=== PATIENT | male | born 1940 | race Caucasian/White ===

== ENCOUNTER 2019-10-04 10:02 | Inpatient (IN) | payer MEDICARE ==
[2019-10-04] MEDS ORDERED: NITROGLYCERIN OINT 1 INCH/GM PACKET TOPICAL STA (10:12)
[2019-10-04] MEDS ORDERED: ASPIRIN 81 MG PO STA (10:12)
[2019-10-04 10:33] LABS: Basophils # (A) 0.1 k/uL (0-0.2); Basophils % (A) 1 %; Eosinophils # (A) 0.1 k/uL (0-0.7); Eosinophils % (A) 0 %; HCT 44.8 % (39.0-53.0); HGB 14.7 gm/dL (13.0-17.5); Lymphocytes % (A) 16 %; MCH 30.9 pg (25.0-35.0); MCHC 32.8 g/dL (31.0-37.0); MCV 94.2 fL (80.0-100.0); Mean Platelet Volume 9.1; Monocytes # (A) 0.7 k/uL (0-1.0); Monocytes % (A) 5 %; Neutrophils # (A) 9.4 k/uL (1.3-7.7); Neutrophils % (A) 75 %; Platelet Count 253 k/uL (150-450); RBC 4.76 m/uL (4.30-5.90); WBC 12.4 k/uL (3.8-10.6)
[2019-10-04 10:42] LABS: Calcium 9.3 mg/dL (8.4-10.2); Total Bilirubin 1.1 mg/dL (0.2-1.3); Total Protein 6.8 g/dL (6.3-8.2)
[2019-10-04 10:43] LABS: Magnesium 2.1 mg/dL (1.6-2.3); Potassium 3.7 mmol/L (3.5-5.1)
[2019-10-04 10:44] LABS: Partial Thromboplastin Time 26.3 sec (22.0-30.0)
--- NOTE | 2019-10-04 10:47 | ED ---
General Adult HPI - General Chief complaint: Chest Pain Stated complaint: chest pain Time Seen by Provider: 10/04/19 10:10 Source: patient, RN notes reviewed, old records reviewed Mode of arrival: wheelchair Limitations: no limitations - History of Present Illness Initial comments: This is a 78-year-old male who presents emergency Department complaining of chest pain. Patient states it started last night about 1:00 in the morning. Patient states consistent with the pain he had when he has previous heart attack. Patient states he does have stents already placed. He also has high blood pressure. Patient states the pain did not radiate anywhere but it didn't make him short of breath. Patient states he took nitroglycerin every time he did it help the pain but the pain eventually returned. Patient denies any fever chills or cough per patient denies headache patient denies numbness weakness. Patient denies lightheadedness or dizziness. - Related Data Allergies Allergy/AdvReac Type Severity Reaction Status Date / Time No Known Allergies Allergy Verified 10/04/19 10:17 Review of Systems ROS Statement: Those systems with pertinent positive or pertinent negative responses have been documented in the HPI. ROS Other: All systems not noted in ROS Statement are negative. Past Medical History Past Medical History: Coronary Artery Disease (CAD), Hyperlipidemia, Hypertension History of Any Multi-Drug Resistant Organisms: None Reported Past Surgical History: Heart Catheterization With Stent Past Psychological History: Anxiety Smoking Status: Never smoker Past Alcohol Use History: None Reported Past Drug Use History: None Reported General Exam - General Exam Comments Initial Comments: GENERAL: Patient is well-developed and well-nourished. Patient is nontoxic and well- hydrated and is in mild distress. ENT: Neck is soft and supple. No significant lymphadenopathy is noted. Oropharynx is clear. Moist mucous membranes. Neck has full range of motion without eliciting any pain. EYES: The sclera were anicteric and conjunctiva were pink and moist. Extraocular movements were intact and pupils were equal round and reactive to light. Eyelids were unremarkable. PULMONARY: Unlabored respirations. Good breath sounds bilaterally. No audible rales rhonchi or wheezing was noted. CARDIOVASCULAR: There is a regular rate and rhythm without any murmurs gallops or rubs. ABDOMEN: Soft and nontender with normal bowel sounds. SKIN: Skin is clear with no lesions or rashes and otherwise unremarkable. NEUROLOGIC: Patient is alert and oriented x3. Cranial nerves II through XII are grossly intact. Motor and sensory are also intact. Normal speech, volume and content. Symmetrical smile. MUSCULOSKELETAL: Normal extremities with adequate strength and full range of motion. LYMPHATICS: No significant lymphadenopathy is noted PSYCHIATRIC: Normal psychiatric evaluation. Limitations: no limitations Course Vital Signs 10/04/19 10:08 Temperature 98.7 F Pulse Rate 79 Respiratory 18 Rate Blood Pressure 148/86 O2 Sat by Pulse 98 Oximetry Medical Decision Making - Medical Decision Making EKG shows normal sinus rhythm at 80 bpm OK interval 286 QRS is 98 QT interval 348 QTC is 41 per patient's EKG shows no ST segment elevation but there is some depression in the inferior leads Chest x-ray shows no acute abnormality. I spoke with Dr. Hernandez he wanted the patient started nitroglycerin drip. I asked him the EKG. He is aware the troponin is elevated and the patient continues to have chest pain. I spoke with Dr. Ramirez he agreed to admit the patient admitted the patient remaining orders I continued nitroglycerin and aspirin - Lab Data Result diagrams: 10/04/19 10:25 10/04/19 10:25 Lab Results 10/04/19 10/04/19 10/04/19 Range/Units 10:25 10:25 10:25 WBC 12.4 H (3.8-10.6) k/uL RBC 4.76 (4.30-5.90) m/uL Hgb 14.7 (13.0-17.5) gm/dL Hct 44.8 (39.0-53.0) % MCV 94.2 (80.0-100.0) fL MCH 30.9 (25.0-35.0) pg MCHC 32.8 (31.0-37.0) g/dL RDW 13.0 (11.5-15.5) % Plt Count 253 (150-450) k/uL Neutrophils % 75 % Lymphocytes % 16 % Monocytes % 5 % Eosinophils % 0 % Basophils % 1 % Neutrophils # 9.4 H (1.3-7.7) k/uL Lymphocytes # 2.0 (1.0-4.8) k/uL Monocytes # 0.7 (0-1.0) k/uL Eosinophils # 0.1 (0-0.7) k/uL Basophils # 0.1 (0-0.2) k/uL PT 10.0 (9.0-12.0) sec INR 1.0 (<1.2) APTT 26.3 (22.0-30.0) sec Sodium 137 (137-145) mmol/L Potassium 3.7 (3.5-5.1) mmol/L Chloride 102 (98-107) mmol/L Carbon Dioxide 29 (22-30) mmol/L Anion Gap 6 mmol/L BUN 25 H (9-20) mg/dL Creatinine 1.33 H (0.66-1.25) mg/dL Est GFR (CKD-EPI)AfAm 59 (>60 ml/min/1.73 sqM) Est GFR (CKD-EPI)NonAf 51 (>60 ml/min/1.73 sqM) Glucose 119 H (74-99) mg/dL Calcium 9.3 (8.4-10.2) mg/dL Magnesium 2.1 (1.6-2.3) mg/dL Total Bilirubin 1.1 (0.2-1.3) mg/dL AST 30 (17-59) U/L ALT 15 (4-49) U/L Alkaline Phosphatase 51 (38-126) U/L Troponin I (0.000-0.034) ng/mL Total Protein 6.8 (6.3-8.2) g/dL Albumin 4.0 (3.5-5.0) g/dL 10/04/19 Range/Units 10:25 WBC (3.8-10.6) k/uL RBC (4.30-5.90) m/uL Hgb (13.0-17.5) gm/dL Hct (39.0-53.0) % MCV (80.0-100.0) fL MCH (25.0-35.0) pg MCHC (31.0-37.0) g/dL RDW (11.5-15.5) % Plt Count (150-450) k/uL Neutrophils % % Lymphocytes % % Monocytes % % Eosinophils % % Basophils % % Neutrophils # (1.3-7.7) k/uL Lymphocytes # (1.0-4.8) k/uL Monocytes # (0-1.0) k/uL Eosinophils # (0-0.7) k/uL Basophils # (0-0.2) k/uL PT (9.0-12.0) sec INR (<1.2) APTT (22.0-30.0) sec Sodium (137-145) mmol/L Potassium (3.5-5.1) mmol/L Chloride (98-107) mmol/L Carbon Dioxide (22-30) mmol/L Anion Gap mmol/L BUN (9-20) mg/dL Creatinine (0.66-1.25) mg/dL Est GFR (CKD-EPI)AfAm (>60 ml/min/1.73 sqM) Est GFR (CKD-EPI)NonAf (>60 ml/min/1.73 sqM) Glucose (74-99) mg/dL Calcium (8.4-10.2) mg/dL Magnesium (1.6-2.3) mg/dL Total Bilirubin (0.2-1.3) mg/dL AST (17-59) U/L ALT (4-49) U/L Alkaline Phosphatase (38-126) U/L Troponin I 1.030 H* (0.000-0.034) ng/mL Total Protein (6.3-8.2) g/dL Albumin (3.5-5.0) g/dL Critical Care Time Critical Care Time: Yes Total Critical Care Time: 35 Disposition Clinical Impression: Acute non-ST elevation myocardial infarction (NSTEMI) Disposition: ADMITTED IP TO THIS HOSP Referrals: Abdiel Garza MD [Primary Care Provider] - 1-2 days Time of Disposition: 11:35
--- NOTE | 2019-10-04 11:01 | XR ---
EXAMINATION TYPE: XR chest 2V DATE OF EXAM: 10/04/2019 COMPARISON: None INDICATION: Chest pain TECHNIQUE: Frontal and lateral views of the chest are obtained. FINDINGS: The heart size is normal. The pulmonary vasculature is normal. The lungs are clear. There is eventration of the posterior right diaphragm. IMPRESSION: 1. No acute pulmonary process.
[2019-10-04] MEDS ORDERED: LORazepam 2 MG/ML INJ IV STA (11:19)
[2019-10-04] MEDS ORDERED: NITROGLYCERIN SL TABS 0.4 MG TAB SUBLINGUAL PRN (11:36)
[2019-10-04] MEDS: NITROGLYCERIN-D5W PMX 50 MG in DEXTROSE/WATER 1 250ML.BAG IV ONE ×2 (12:12→17:37)
--- NOTE | 2019-10-04 12:37 | P.CRDCN ---
History of Present Illness Consult date: 10/04/19 History of present illness: This is a 78-year-old gentleman with history of ischemic heart disease with possible previous myocardial infarction. He used to live in [place] and had previous stent placement. He claimed that he had 3 stents. He also claimed that he had a clot and was maintained on anticoagulation. His EKG shows possible old anteroseptal AR. I'm presuming that most probably had clotted apex related to AR and possible some aneurysm formation. He moved to this area and has been seen by Dr. Carmen. He did have a recent stress test and echocardiogram and apparently was told that the tests were okay. Starting last night around 11:00 patient has been having chest discomfort similar to what he had before. Nitroglycerin will relieve the pain but pain will come back. In view of ongoing pains patient came to the emergency room. His EKG shows mild ST depression inferior leads and evidence of old anteroseptal AR. He still having some discomfort described as a 3 on a scale of 1-10. His troponin is positive. In view of that patient is advised to have a cardiac catheterization for definitive diagnosis. Patient is on Eliquis. Patient is being initiated on IV nitroglycerin and beta blockers along with aspirin. We'll proceed with Cardec catheterization as soon as possible. We'll also get an echocardiogram Review of Systems As per the chart Past Medical History Past Medical History: Coronary Artery Disease (CAD), Hyperlipidemia, Hypertension History of Any Multi-Drug Resistant Organisms: None Reported Past Surgical History: Heart Catheterization With Stent Past Psychological History: Anxiety Smoking Status: Never smoker Past Alcohol Use History: None Reported Past Drug Use History: None Reported Medications and Allergies Home Medications Medication Instructions Recorded Confirmed Type Apixaban [Eliquis] 5 mg PO BID 10/04/19 10/04/19 History Aspirin [Adult Low Dose Aspirin EC] 81 mg PO DAILY 10/04/19 10/04/19 History Carvedilol [Coreg] 6.25 mg PO BID 10/04/19 10/04/19 History Cholecalciferol [Vitamin D3 (25 1,000 unit PO DAILY 10/04/19 10/04/19 History Mcg = 1000 Iu)] Cyanocobalamin [Vitamin B-12] 500 mcg PO DAILY 10/04/19 10/04/19 History Hydrochlorothiazide 25 mg PO DAILY 10/04/19 10/04/19 History LORazepam [Ativan] 1 mg PO BID 10/04/19 10/04/19 History Nitroglycerin 0.4MG/Hr Patch 1 patch TRANSDERM DAILY 10/04/19 10/04/19 History [Nitro-Dur 0.4MG/Hr Patch] Potassium Gluconate 99 mg PO DAILY 10/04/19 10/04/19 History Simvastatin 40 mg PO DAILY 10/04/19 10/04/19 History amLODIPine [Norvasc] 2.5 mg PO DAILY 10/04/19 10/04/19 History Allergies Allergy/AdvReac Type Severity Reaction Status Date / Time No Known Allergies Allergy Verified 10/04/19 12:22 Physical Exam Vitals: Vital Signs Temp Pulse Resp BP Pulse Ox 10/04/19 12:30 74 20 155/101 99 10/04/19 12:00 75 20 141/90 97 10/04/19 11:30 75 12 135/79 97 10/04/19 11:00 68 18 140/85 97 10/04/19 10:30 79 7 L 148/86 99 10/04/19 10:08 98.7 F 79 18 148/86 98 Intake and Output 10/03/19 10/04/19 10/04/19 22:59 06:59 14:59 Other: Weight 87.09 kg GENERAL EXAM: Patient is alert and oriented and doesn't appear to be in any acute distress HEENT: Normocephalic. Normal reaction of pupils, equal size, normal range of extraocular motion. No erythema or exudates in the throat. NECK: No masses, no nuchal rigidity. CHEST: No chest wall deformity. LUNGS: Equal air entry with no crackles or wheeze. HEART: S1 and S2 normal with no audible mumurs or gallops. Regular rhythm, femorals equal on both sides.. ABDOMEN: No hepatosplenomegaly, normal bowel sounds, no guarding or rigidity. SKIN: No rashes CENTRAL NERVOUS SYSTEM: No focal deficits. EXTREMITIES: No cyanosis, clubbing or edema. Results 10/04/19 10:25 10/04/19 10:25 Cardiac Enzymes 10/04/19 10/04/19 Range/Units 10:25 10:25 AST 30 (17-59) U/L Troponin I 1.030 H* (0.000-0.034) ng/mL Coagulation 07/04/20 Range/Units 10:25 PT 10.0 (9.0-12.0) sec APTT 26.3 (22.0-30.0) sec CBC 10/04/19 Range/Units 10:25 WBC 12.4 H (3.8-10.6) k/uL RBC 4.76 (4.30-5.90) m/uL Hgb 14.7 (13.0-17.5) gm/dL Hct 44.8 (39.0-53.0) % Plt Count 253 (150-450) k/uL Comprehensive Metabolic Panel 10/04/19 Range/Units 10:25 Sodium 137 (137-145) mmol/L Potassium 3.7 (3.5-5.1) mmol/L Chloride 102 (98-107) mmol/L Carbon Dioxide 29 (22-30) mmol/L BUN 25 H (9-20) mg/dL Creatinine 1.33 H (0.66-1.25) mg/dL Glucose 119 H (74-99) mg/dL Calcium 9.3 (8.4-10.2) mg/dL AST 30 (17-59) U/L ALT 15 (4-49) U/L Alkaline Phosphatase 51 (38-126) U/L Total Protein 6.8 (6.3-8.2) g/dL Albumin 4.0 (3.5-5.0) g/dL Current Medications Generic Name Dose Route Start Last Admin Trade Name Freq PRN Reason Stop Dose Admin Aspirin 325 mg 10/05/19 09:00 Aspirin PO DAILY SHIRA Nitroglycerin/Dextrose 50 mg/ 250 mls @ 1.5 mls/hr 10/04/19 11:31 10/04/19 12:12 IV Solution IV 10/05/19 11:30 5 mcg/min .Q24H ONE 1.5 mls/hr Administration Protocol 5 MCG/MIN Nitroglycerin 0.4 mg 10/04/19 11:36 Nitrostat SUBLINGUAL Q5M PRN Chest Pain Intake and Output 10/03/19 10/04/19 10/04/19 22:59 06:59 14:59 Other: Weight 87.09 kg Patient Weight 10/05/19 06:59 Weight 87.09 kg 10/04/19 10:25 10/04/19 10:25 EKG Interpretations (text) Sinus rhythm with evidence of possible old anteroseptal AR with mild ST-T changes in inferior leads Assessment and Plan (1) Q waves suggestive of previous myocardial infarction Current Visit: Yes Status: Acute Code(s): R94.31 - ABNORMAL ELECTROCARDIO GRAM [ECG] [EKG] SNOMED Code(s): 166600257 (2) Acute non-ST elevation myocardial infarction (NSTEMI) Current Visit: Yes Status: Acute Code(s): I21.4 - NON-ST ELEVATION (NSTEMI) MYOCARDIAL INFARCTION SNOMED Code(s): 213154009 (3) Chronic renal failure Current Visit: Yes Status: Acute Code(s): N18.9 - CHRONIC KIDNEY DISEASE, UNSPECIFIED SNOMED Code(s): 16949626 Plan: We will proceed with a cardiac catheterization for definitive diagnosis. Meanwhile we'll continue with aspirin, beta cortney and IV nitroglycerin. Further recommendations depend upon clinical course. We'll also get an echoca rdiogram
[2019-10-04] MEDS ORDERED: MAGNESIUM SULFATE-D5W PMX 1 GM in DEXTROSE/WATER 1 100ML.BAG IVPB STA (13:32)
[2019-10-04] MEDS ORDERED: DEXTROSE 5% IN WATER 100 ML with AMIODARONE 150 MG IV ONE ×2 (13:33→13:39)
--- NOTE | 2019-10-04 13:34 | P.PN ---
Progress Note - Text Progress Note Date: 10/04/19 KERMIT TIRADO note: KERMIT TIRADO was called at the [facility] around 1:25 PM. Apparently patient had a syncopal episode and went into ventricular fibrillation. High-quality chest compressions were started. He was defibrillated at 200 J. He achieved return of spontaneous circulation. There was some concerns for seizure like activity. Dr. Hernandez was made aware of the events that took place in the [facility]. Dr. Hernandez arrived shortly after. These series of events took approximately 5-10 minutes.
[2019-10-04] MEDS ORDERED: AMIODARONE 50 MG/ML 3 ML VIAL IV ONE (13:39)
[2019-10-04] MEDS ORDERED: SODIUM CHLORIDE 0.9% 1,000 ML IV ONE (13:39)
[2019-10-04] MEDS ORDERED: LIDOCAINE 1% INJ 10MG/ML (20 ML MDV) SQ ONE (13:39)
[2019-10-04] MEDS: HEPARIN SODIUM 1,000 UN/ML (10ML VL) IV ONE ×2 (13:40→14:05)
[2019-10-04] MEDS ORDERED: VERAPAMIL SYRINGE (5 MG/10 ML) INTRAARTER ONE (13:40)
[2019-10-04] MEDS ORDERED: AMIODARONE 360 MG in DEXTROSE 5% IN WATER 200 ML IV ONE ×4 (13:45→14:15)
[2019-10-04] MEDS ORDERED: HEPARIN SODIUM 1,000 UN/ML (10ML VL) ONE (13:45)
--- NOTE | 2019-10-04 14:14 | P.CARDCATH ---
Date of Procedure: 10/04/19 Preoperative Diagnosis: Non-ST elevation LA, cardiac arrest and ventricular fibrillation Postoperative Diagnosis: Near total occlusion of the OM branch sluggish flow Procedure(s) Performed: Left heart cath without left ventriculography Description of Procedure: HISTORY: This is a 78-year-old gentleman with history of previous anterior wall myocardial infarction with multiple stent placement came to the emergency room with complaints of chest pain off and on his level o'clock last night. His first troponin was about more than 1. His EKG showed sinus rhythm with evidence of old anterolateral wall LA some T-wave inversion in the inferior leads. Patient is still having intermittent chest tightness described as a 3 and a scale of10. Doesn't appear to be in acute distress. However because of ongoing chest discomfort, Patient is advised to have a cardiac catheterization. As patient was being put on the table in the Lab, patient had a syncope with ventricular fibrillation. Patient was shocked and had brief CPR and retained pulse. Patient was little confused but was talking and moving. We decided to proceed with cardiac cath for definitive diagnosis and further intervention. The situation was discussed with family member, that his nephew, regarding the events. Prognosis is guarded. His mental status is fluctuating CONSENT:I have discussed the risks, benefits and alternative therapies for the above-mentioned procedure and for both sedation/analgesia as well as necessary blood product administration, if indicated, as they pertain to this patient. The patient has indicated understanding and acceptance of the risks and procedures discussed. PROCEDURE: Patient was brought to the lab in a fasting state. Patient was given some IV sedation. The right wrist is infiltrated with lidocaine and right radial artery was entered using Seldinger technique. A 6-[place] Citizen catheter was left in place and selective coronary arteriography was performed. Patient tolerated the procedure well. Patient went on to have stent placement to the OM branch which is previously stented. No immediate complications were noted and patient was transferred to [facility] in a stable condition Conscious Sedation: Versed 0mg Fentanyl 0 g Duration 15minutes HEMODYNAMICS: Aortic pressure is 110/70. The left ventricular end-diastolic pressure is not measured SELECTIVE CORONARY ARTERIOGRAPHY: LEFT MAIN: Large and free of any occlusive disease THE LEFT ANTERIOR DESCENDING CORONARY ARTERY:. Good caliber vessel with patent stent in the proximal to midportion THE LEFT CIRCUMFLEX AND IS CORONARY ARTERY:. Good caliber vessel with subtotal occlusion of the OM branch with faint antegrade flow. This vessel was previously stented THE RIGHT CORONARY ARTERY: Good caliber vessel with mild disease without any critical lesions. Dominant in distribution LEFT VENTRICULOGRAPHY:, Not performed FINAL IMPRESSION: Subtotal occlusion of the OM branch which was previously stented. The stent in the LAD is patent. The right coronary artery is free of significant focal lesion PLAN:. Stent placement of the OM branch being done by Dr. PADMAJA Loera PROGNOSIS:. gaurded
[2019-10-04] MEDS ORDERED: MIDAZOLAM 2 MG/2 ML VIAL IV ONE (14:27)
[2019-10-04] MEDS ORDERED: HEPARIN SODIUM 1,000 UN/ML (10ML VL) IV ONE (14:44)
[2019-10-04] MEDS ORDERED: IOPAMIDOL-370 100ML BTL INJ ONE (14:45)
[2019-10-04] MEDS ORDERED: CLOPIDOGREL 75 MG TAB NG-TUBE ONE (14:46)
[2019-10-04] MEDS ORDERED: CLOPIDOGREL 75 MG TAB ONE (14:53)
[2019-10-04] MEDS: SODIUM CHLORIDE 0.9% 1,000 ML IV SCH (15:00)
[2019-10-04] MEDS ORDERED: IPRATROPIUM-ALBUTEROL 3 ML NEB INHALATION PRN (15:03)
[2019-10-04] MEDS ORDERED: Potassium Replacement Protocol 1 EACH MISC MISCELLANE PRN (15:41)
--- NOTE | 2019-10-04 15:55 | CT ---
CT scan of the brain. History altered mental status. Comparison none. TECHNIQUE: Multiple axial sections were obtained of the brain without contrast. There is diffuse cerebral cortical atrophy. There is no mass effect nor midline shift. There is no si gn of intracranial hemorrhage. There is some mucosal thickening in the ethmoid air cells. Calvarium i s intact. IMPRESSION: Cerebral atrophy. No acute intracranial abnormality.
[2019-10-04] MEDS ORDERED: POTASSIUM BICARBONATE/CIT AC 20 MEQ TABLET.EFF NG-TUBE SCH (16:00)
[2019-10-04] MEDS: PROPOFOL 1,000 MG in EMPTY BAG 1 BAG IV SCH ×2 (16:00→20:58)
--- NOTE | 2019-10-04 16:42 | XR ---
EXAMINATION TYPE: XR chest 1V portable DATE OF EXAM: 10/04/2019 COMPARISON: Today HISTORY: Chest pain respiratory failure. TECHNIQUE: FINDINGS: There is endotracheal tube 5 cm from the maureen. There is some patchy atelectasis at the rosie ng bases. There is nasogastric tube in the stomach. There are chest leads. IMPRESSION: There is new bilateral basilar atelectasis compared to exam this morning. No heart failur e seen.
[2019-10-04 16:44] LABS: Glucose,Whole Blood 148 mg/dL (75-99)
[2019-10-04 16:57] LABS: ABG Base Excess 2.7 mmol/L; ABG HCO3 26 mmol/L (21-25); ABG Oxygen Saturation 98.8 % (94-97); ABG PCO2 39 mmHg (35-45); ABG PH 7.45 (7.35-7.45); ABG PO2 139 mmHg (83-108); Allen Test Performed? Yes
[2019-10-04] MEDS: IPRATROPIUM-ALBUTEROL 3 ML NEB INHALATION SCH ×3 (17:03→23:45)
[2019-10-04] MEDS: CARVEDILOL 3.125 MG TAB PO SCH (18:53)
[2019-10-04] MEDS: NOREPINEPHRINE 4 MG in SODIUM CHLORIDE 0.9% 250 ML IV SCH (18:54)
[2019-10-04] MEDS: HEPARIN SODIUM,PORCINE 5,000 UNIT/ML 1 ML VIAL SQ SCH (19:42)
[2019-10-04] MEDS: PANTOPRAZOLE 40 MG/10 ML VIAL IV SCH (19:42)
[2019-10-04 19:50] LABS: Appearance,Urine Clear (Clear); Bilirubin,Urine Negative (Negative); Blood,Urine Small (Negative); Color,Urine Light Yellow; Glucose,Urine (UA) Negative (Negative); Ketones,Urine Trace (Negative); Leukocyte Esterase,Urine Negative (Negative); Nitrite,Urine Negative (Negative); PH, Urine 7.5 (5.0-8.0); Protein,Urine Negative (Negative); RBC,Urine 29 /hpf (0-5); Specific Gravity,Urine 1.023 (1.001-1.035); Urobilinogen,Urine <2.0 mg/dL (<2.0); WBC,Urine 1 /hpf (0-5)
[2019-10-04] MEDS: CHLORHEXIDINE GLUCONATE 15 ML CUP MUCOUS MEM SCH (21:01)
[2019-10-04] MEDS: AMIODARONE 300 MG in DEXTROSE 5% IN WATER 250 ML IV SCH ×2 (21:13)
--- NOTE | 2019-10-05 00:18 | PTCA ---
PERCUTANEOUSTRANS CORORONARY ANGIOGRAPHY DATE OF SERVICE: 10/04/2019 PROCEDURE PERFORMED: PTCA and stenting of a subtotally occluded circumflex marginal coronary artery performed in the setting of an acute [place] following a cardiac arrest with patient in a critical condition. PERFORMED BY: Dr. Sophia Loera. ANESTHESIA: Moderate conscious sedation time was 50 minutes. CLINICAL INFORMATION: Mr. Pa Dey is a 78-year-old gentleman history of CAD who underwent stenting of LAD and circumflex in [place], details are unavailable. He came into the hospital with chest pain, had a troponin elevation, was evaluated by Dr. Hernandez. He was brought to the laborer high density press, but prior to that he had an echo which revealed extensive wall motion abnormality with a clot in the left ventricular apex, but this was not new. Patient was already on Eliquis. He was brought to the laborer high density press but before the procedure could begin, he had a ventricular fibrillation requiring to be shocked and brief CPR. The patient, however, was resuscitated but was quite disoriented mentally and I began the procedure in this situation. He had already an access from the right radial site. Coronary angiography was performed. Study revealed that the previously stented LAD was patent. The circumflex marginal which was also stented had a very sluggish flow with a 99% mid lesion within the stented segment. RCA was free of any critical any significant lesions. PROCEDURE NOTE: The existing 6-Tong[place] introducer in the right radial artery was used for the procedure. I used a standard left Pratima guide catheter to cannulate the left coronary artery. I used a run-through wire to cross the obtuse marginal vessel. I then advanced a 2.5 caliber Trek balloon and dilated the entire circumflex marginal with modest improvement. I then noted that there were 2 stents to the circumflex marginal between the stent is there was a gap and this is where the vessel now has a subtotal occlusion with thrombus. The patient was already on Eliquis. I gave a total of 4000 units of heparin and ACT was only 175 additional 1000 units of heparin was given. At this stage, I proceeded with the. At this stage I decided to stent the vessel. I used an 18 mm long 3.25 caliber Xience stent and deployed this and covering the gap between the 2 previous stents. I then used a 3.25 caliber 12 mm NC Trek balloon and dilated the entire previously stented segment as well at 12 atmospheres. Excellent angiographic result was achieved. The patient, however, continued to be disoriented. He could not take any oral tablets. At this point, we decided to intubate him since he was not breathing very well disoriented and also of the we had to protect the airway. I requested anesthesia to intubate the patient and the intubation happened uneventfully. The patient's blood pressure went down after intubation with the administration of succinylcholine and Diprivan. An NG tube was placed and he received 600 mg of Plavix through the NG tube. The sheath was taken out and TR band applied as per protocol. He was sent to the ICU in a critical condition. Dr. Hernandez had an extensive discussion with the patient's only available family member who was his grandson. Prognosis remains quite poor, but we will continue to watch him closely. Condition remains critical. MMODL / IJN: [id number] /
[2019-10-05] MEDS: HEPARIN SODIUM,PORCINE 5,000 UNIT/ML 1 ML VIAL SQ SCH ×3 (00:28→15:27)
[2019-10-05] MEDS: PROPOFOL 1,000 MG in EMPTY BAG 1 BAG IV SCH ×2 (01:45→06:44)
[2019-10-05] MEDS: IPRATROPIUM-ALBUTEROL 3 ML NEB INHALATION SCH ×5 (03:37→20:17)
[2019-10-05] MEDS: SODIUM CHLORIDE 0.9% 1,000 ML IV SCH ×2 (04:39→17:37)
[2019-10-05 04:49] LABS: Basophils % (A) 0 %; Eosinophils # (A) 0.1 k/uL (0-0.7); Eosinophils % (A) 0 %; HCT 39.2 % (39.0-53.0); HGB 13.6 gm/dL (13.0-17.5); Lymphocytes # (A) 0.9 k/uL (1.0-4.8); Lymphocytes % (A) 6 %; MCH 32.8 pg (25.0-35.0); MCHC 34.8 g/dL (31.0-37.0); MCV 94.1 fL (80.0-100.0); Mean Platelet Volume 9.5; Monocytes # (A) 0.9 k/uL (0-1.0); Monocytes % (A) 6 %; Neutrophils # (A) 13.9 k/uL (1.3-7.7); Neutrophils % (A) 87 %; Platelet Count 235 k/uL (150-450); RBC 4.17 m/uL (4.30-5.90); WBC 15.9 k/uL (3.8-10.6)
[2019-10-05 04:59] LABS: Calcium 8.3 mg/dL (8.4-10.2); Phosphorus 3.2 mg/dL (2.5-4.5); Potassium 3.2 mmol/L (3.5-5.1)
[2019-10-05] MEDS: POTASSIUM BICARBONATE/CIT AC 20 MEQ TABLET.EFF NG-TUBE SCH ×2 (06:34→08:39)
[2019-10-05] MEDS: AMIODARONE 300 MG in DEXTROSE 5% IN WATER 250 ML IV SCH ×2 (06:34)
[2019-10-05] MEDS: CARVEDILOL 3.125 MG TAB PO SCH ×2 (06:39→17:36)
--- NOTE | 2019-10-05 07:33 | XR ---
EXAMINATION TYPE: XR chest 1V portable DATE OF EXAM: 10/05/2019 COMPARISON: 10/04/2019 HISTORY: Shortness of breath TECHNIQUE: Single frontal view of the chest is obtained. FINDINGS: ET and NG tube stable. There is bilateral consolidation and pleural effusion which is mild ly progressed from the right. Biapical pleural thickening with no overt failure. Limited inspiration noted. IMPRESSION: Bilateral infiltrate and tiny effusion slightly progressed on the right.
[2019-10-05 07:40] LABS: ABG Base Excess 4.6 mmol/L; ABG HCO3 29 mmol/L (21-25); ABG Oxygen Saturation 98.6 % (94-97); ABG PCO2 40 mmHg (35-45); ABG PH 7.46 (7.35-7.45); ABG PO2 121 mmHg (83-108); ABG TCO2 30 mmol/L (19-24); Allen Test Performed? Yes
[2019-10-05] MEDS: ASPIRIN 325 MG TAB PO SCH (08:39)
[2019-10-05] MEDS: ATORVASTATIN 80 MG TAB PO SCH (08:39)
[2019-10-05] MEDS: PANTOPRAZOLE 40 MG/10 ML VIAL IV SCH (08:39)
[2019-10-05] MEDS: CHLORHEXIDINE GLUCONATE 15 ML CUP MUCOUS MEM SCH (08:40)
[2019-10-05] MEDS: CLOPIDOGREL 75 MG TAB PO SCH (08:40)
--- NOTE | 2019-10-05 08:55 | HP ---
HISTORY AND PHYSICAL DATE OF SERVICE: 10/05/2019 CHIEF COMPLAINT: Chest pain. HISTORY OF PRESENT ILLNESS: This 78-year-old gentleman with a past medical history of multiple medical problems including history of CAD, hypertension, hyperlipidemia, history of CAD stent, anxiety being followed by Dr. Russ in the outpatient setting admitted initially with chest pain. The pain started about 1 o'clock in the morning. The pain was felt in the anterior wall of the chest and the patient thought that the pain was similar to previous heart attack. The patient has high blood pressure. The pain is not radiating. The troponin was found to be 1. The EKG done at that time showed ST- T changes and QS complex. The patient went to cardiac cath at that time. The patient wanted to go to the bathroom, stood up, and the patient apparently had an episode of cardiac arrest with cardiac arrhythmia. Uri marin was called. The patient had a syncopal episode and patient had ventricular fibrillation. Chest compressions initiated and subsequently the patient regained spontaneous circulation. Dr. Hernandez performed a cardiac catheterization and Dr. Sophia Loera performed a PTCA with stenting of the subtotally occluded circumflex marginal artery. The patient subsequently had confusion. Because of the ARB maintenance issues, the patient was mechanically intubated and transferred to ICU at this time. Patient mechanically sedated and the vent settings are noted. Patient is on assist-control 4, 50 to 60% FIO2, 5 of PEEP. The patient is on an amiodarone drip as well. The patient will be closely monitored. The patient is unable to give coherent history. Most of the history taken from my discussion with staff and review of the chart at this time. PAST MEDICAL HISTORY: History of CAD with stent, hypertension, hyperlipidemia, history of myocardial infarction, anxiety. MEDICATIONS: Prior to admission, home medications were; 1. Norvasc. 2. Vitamin B12. 4. Nitro. 5. Eliquis. 6. Ativan. 7. Hydrochlorothiazide. 8. Coreg. 9. Potassium gluconate. 10.Aspirin. Doses are reviewed. ALLERGIES: None. FAMILY HISTORY, SOCIAL HISTORY, REVIEW OF SYSTEMS: Could not be taken at length because the patient is mechanically sedated. No history of smoking per chart. PHYSICAL EXAMINATION: The pulse is 62, blood pressure 103/56, respiration 16, temperature normal, pulse ox 99 percent on 50% FiO2. Vent settings are noted. HEENT: Conjunctivae normal. NECK: No jugular venous distention. CARDIOVASCULAR: S1, S2, muffled. No S3, no S4. RESPIRATORY: Diminished breath sounds at the bases. No rhonchi or crackles. ABDOMEN: Soft, nontender. No masses palpable. LEGS: No edema, no swelling. NERVOUS SYSTEM: Higher functions mentioned earlier. Moves all four limbs. No focal motor or sensory deficits. LYMPHATICS: No lymph node in neck or axilla. SKIN: No rash. JOINTS: No active deforming arthropathy. LABS: WBC 12.9, hemoglobin 14.7 and creatinine is 1.33 and the baseline creatinine is not available. Troponin is 1.03. ASSESSMENT: 1. Acute non ST elevation myocardial infarction, status post cardiac catheterization and stenting of the subtotally occluded circumflex marginal artery. 2. Acute respiratory failure, hypoxic, on mechanical ventilation. 3. Ventricular fibrillation, on amiodarone drip. 4. Increased creatinine, acute renal failure acute tubular necrosis. 5. Increased WBC. 6. History of coronary artery disease with stent. 7. History of myocardial infarction. 8. History of hypertension. 9. History of hyperlipidemia. 10.History of anxiety. 11.FULL CODE. RECOMMENDATIONS AND DISCUSSION: In this 78-year-old gentleman who presented with multiple complex medical issues, we will monitor the patient closely. Continue the current management and continue with symptomatic treatment. Will continue with dual antiplatelet treatment. Continue with elevator mechanic ventilation and bronchodilators. Otherwise monitor lytes closely. Continue the amiodarone drip. Monitor fluid electrolyte balance closely. DVT prophylaxis. Incentive spirometry. We will initiate the home medications once the patient is p.o. Otherwise, monitor blood sugars closely. Further recommendations to follow. A copy of this dictation will be forwarded to Dr. Garza who is the primary physician. Dr. Scott will be consulted for intensive care management and 2D echo with doppler also will be ordered. COVID-19 is also being requested. Once again the prognosis is guarded. Further recommendations to follow. MMODL / IJN: [id number] / MTDD
--- NOTE | 2019-10-05 10:25 | P.PN ---
Subjective Progress Note Date: 10/05/19 This 78-year-old gentleman with history of ischemic or disease with previous myocardial infarctions and stent placement of the LAD and also circumflex done in [place] several years ago. Patient moved recently to this area and seen Dr. Carmen. Patient had a recent stress test and echocardiogram and patient told that test did not show significant abnormalities. He was admitted to the hospital with recurrent chest pains lasting several hours. His initial troponin was abnormal in the range of more than 1. Minimally of ongoing chest pain. Patient was advised to have cardiac catheterization. His EKG showed some T-wave inversion in inferior leads and evidence of old anteroseptal [place]. Unfortunately, patient went into ventricular tachycardia fibrillation before. Patient went on cardiac cath table. Patient required brief CPR and defibrillation. Patient regained consciousness and hemodynamically stable but developed a progressive confusion and And combative during and after the cardiac cath and intervention. Patient had stent placement of the OM branch of the circumflex. Hemodynamically patient is stable. Hasn't had any recurrence of ventricular fibrillation. Patient is on amiodarone drip. We'll discontinue amiodarone after the tip is done. Patient is still intubated and sedated. His chest x-ray doesn't show any evidence of CHF. We'll get a neurology consult. He had his computed tomography scan of the brain which was negative. We'll have to consider weaning off the respirator if patient can tolerate. Overall prognosis is guarded Objective - Vital Signs Vital signs: Vital Signs Temp 97.3 F L 10/05/19 08:00 Pulse 62 10/05/19 10:00 Resp 15 10/05/19 10:00 BP 108/61 10/05/19 07:00 Pulse Ox 100 10/05/19 10:00 Intake & Output 10/04/19 10/05/19 10/05/19 18:59 06:59 18:59 Intake Total 972.886 5673.858 471.801 Output Total 645 865 290 Balance 238.593 623.858 181.801 Weight 87.09 kg 90.2 kg 90.2 kg Intake: IV 868.5 903 300 Nitroglycerin-D5w Pmx 50 7.5 3 mg In Dextrose/Water 1 250ml.bag @ 5 MCG/MIN 1.5 mls/hr IV .Q24H [facility] Rx#: [id number] Sodium Chloride 0.9% 1, 225 900 300 000 ml @ 75 mls/hr IV . [id number] [facility] Rx#:[id number] Intake, IV Titration 15.093 585.858 171.801 Amount Amiodarone 300 mg In 233.75 Dextrose 5% in Water 250 ml @ 0.5 MG/MIN 25 mls/hr IV .Q10H [facility] Rx#: [id number] Nitroglycerin-D5w Pmx 50 8.125 mg In Dextrose/Water 1 250ml.bag @ 5 MCG/MIN 1.5 mls/hr IV .Q24H [facility] Rx#: [id number] Norepinephrine 4 mg In 99.547 108.504 Sodium Chloride 0.9% 250 ml @ 0.05 MCG/KG/MIN 16. 591 mls/hr IV .[id number] [facility] Rx#:[id number] Propofol 1,000 mg In 6.968 252.561 63.297 Empty Bag 1 bag @ Titrate IV .Q0M [facility] Rx#: [id number] Output: Urine 645 865 290 Other: Voiding Method Indwelling Catheter Indwelling Catheter Indwelling Catheter ABP, PAP, CO, CI - Last Documented Arterial Blood Pressure 107/55 - Exam GENERAL EXAM: Patient is intubated and sedated HEENT: Normocephalic. Normal reaction of pupils, equal size, normal range of extraocular motion. No erythema or exudates in the throat. NECK: No masses, no nuchal rigidity. CHEST: No chest wall deformity. LUNGS: Equal air entry with no crackles or wheeze. HEART: S1 and S2 normal ABDOMEN: No hepatosplenomegaly, normal bowel sounds, no guarding or rigidity. SKIN: No rashes CENTRAL NERVOUS SYSTEM: Intubated and sedated EXTREMITIES: No cyanosis, clubbing or edema. PUNCTURE SITE: Right wrist. Appears to be soft without any significant edema. Radial pulse is preserved - Labs CBC & Chem 7: 10/05/19 04:30 10/05/19 04:30 Labs: Abnormal Lab Results - Last 24 Hours (Table) 10/04/19 10/04/19 10/04/19 Range/Units 10:25 10:25 10:25 WBC 12.4 H (3.8-10.6) k/uL RBC (4.30-5.90) m/uL Neutrophils # 9.4 H (1.3-7.7) k/uL Lymphocytes # (1.0-4.8) k/uL ABG pH (7.35-7.45) ABG pO2 (83-108) mmHg ABG HCO3 (21-25) mmol/L ABG Total CO2 (19-24) mmol/L ABG O2 Saturation (94-97) % Potassium (3.5-5.1) mmol/L BUN 25 H (9-20) mg/dL Creatinine 1.33 H (0.66-1.25) mg/dL Glucose 119 H (74-99) mg/dL POC Glucose (mg/dL) (75-99) mg/dL Calcium (8.4-10.2) mg/dL Troponin I 1.030 H* (0.000-0.034) ng/mL Urine Ketones (Negative) Urine Blood (Negative) Urine RBC (0-5) /hpf 10/04/19 10/04/19 10/04/19 Range/Units 16:42 16:50 19:37 WBC (3.8-10.6) k/uL RBC (4.30-5.90) m/uL Neutrophils # (1.3-7.7) k/uL Lymphocytes # (1.0-4.8) k/uL ABG pH (7.35-7.45) ABG pO2 139 H (83-108) mmHg ABG HCO3 26 H (21-25) mmol/L ABG Total CO2 (19-24) mmol/L ABG O2 Saturation 98.8 H (94-97) % Potassium (3.5-5.1) mmol/L BUN (9-20) mg/dL Creatinine (0.66-1.25) mg/dL Glucose (74-99) mg/dL POC Glucose (mg/dL) 148 H (75-99) mg/dL Calcium (8.4-10.2) mg/dL Troponin I (0.000-0.034) ng/mL Urine Ketones Trace H (Negative) Urine Blood Small H (Negative) Urine RBC 29 H (0-5) /hpf 10/05/19 10/05/19 10/05/19 Range/Units 04:30 04:30 07:35 WBC 15.9 H (3.8-10.6) k/uL RBC 4.17 L (4.30-5.90) m/uL Neutrophils # 13.9 H (1.3-7.7) k/uL Lymphocytes # 0.9 L (1.0-4.8) k/uL ABG pH 7.46 H (7.35-7.45) ABG pO2 121 H (83-108) mmHg ABG HCO3 29 H (21-25) mmol/L ABG Total CO2 30 H (19-24) mmol/L ABG O2 Saturation 98.6 H (94-97) % Potassium 3.2 L (3.5-5.1) mmol/L BUN (9-20) mg/dL Creatinine (0.66-1.25) mg/dL Glucose 137 H (74-99) mg/dL POC Glucose (mg/dL) (75-99) mg/dL Calcium 8.3 L (8.4-10.2) mg/dL Troponin I (0.000-0.034) ng/mL Urine Ketones (Negative) Urine Blood (Negative) Urine RBC (0-5) /hpf Assessment and Plan (1) Q waves suggestive of previous myocardial infarction Current Visit: Yes Status: Acute Code(s): R94.31 - ABNORMAL ELECTROCARDIOGRAM [ECG] [EKG] SNOMED Code(s): 149455441 (2) Acute non-ST elevation myocardial infarction (NSTEMI) Current Visit: Yes Status: Acute Code(s): I21.4 - NON-ST ELEVATION (NSTEMI) MYOCARDIAL INFARCTION SNOMED Code(s): 968100354 (3) Chronic renal failure Current Visit: Yes Status: Acute Code(s): N18.9 - CHRONIC KIDNEY DISEASE, UNSPECIFIED SNOMED Code(s): 22424225 Plan: Patient is still intubated and sedated. Hemodynamically stable. Mental status is unknown at this time. Will have neurology in the input. Attempts to wean off the respirator as soon as possible. Prognosis is guarded
[2019-10-05] MEDS: NOREPINEPHRINE 4 MG in SODIUM CHLORIDE 0.9% 250 ML IV SCH (10:42)
[2019-10-05] MEDS: LORazepam 2 MG/ML INJ IV PRN ×3 (11:43→21:48)
--- NOTE | 2019-10-05 14:12 | P.CNPUL ---
History of Present Illness Consult date: 10/05/19 Requesting physician: Mariah Ramirez Reason for consult: other (Mechanical ventilator/critical care management) Chief complaint: Chest pain History of present illness: This is a 78-year-old gentleman who has a history of coronary artery disease with previous stent placement 3 while living in [place], he also had some apical aneurysm formation and is maintained on Eliquis, hyperlipidemia, hypertension, anxiety. He presented to the emergency room yesterday with complaints of chest pain feeling similar to his previous heart attack. EKG showed ST depression in the inferior leads and evidence of an old anteroseptal [place]. Troponins were positive. He was taken to the [facility] where he did sustain a V. fib arrest with subsequent shop in CPR and return of spontaneous circulation he was however intubated and proceeded to have stenting of a subtotally occluded circumflex coronary artery. He was then admitted to the ICU on the mechanical ventilator. He is seen today in consultation in the ICU. Current vent settings are assist control at a rate of 16, tidal volume 450, FiO2 50% and a PEEP of 5. Arterial blood gases revealed a pO2 of 121, pCO2 of 40 and a pH of 7.46. White count 15.9. Hemoglobin 13.6. Sodium 137. Potassium 3.2. Creatinine 1.18. Sputum culture pending. Chest x-ray showed bilateral infiltrates and tiny effusions more so on the right. He's been initiated on DuoNeb inhalations, 0.9 normal saline at 75 ML's per hour. Amiodarone at 0.5 mg/m and sedated on propofol. Review of Systems ROS unobtainable: due to endotracheal tube Past Medical History Past Medical History: Coronary Artery Disease (CAD), Hyperlipidemia, Hypertension, Myocardial Infarction ([place]) Last Myocardial Infarction Date:: 10/04/2019 History of Any Multi-Drug Resistant Organisms: None Reported Past Surgical History: Heart Catheterization With Stent Date of Last Stent Placement:: 10/04/2019 Smoking Status: Never smoker Medications and Allergies Home Medications Medication Instructions Recorded Confirmed Type Apixaban [Eliquis] 5 mg PO BID 10/04/19 10/04/19 History Aspirin [Adult Low Dose Aspirin EC] 81 mg PO DAILY 10/04/19 10/04/19 History Carvedilol [Coreg] 6.25 mg PO BID 10/04/19 10/04/19 History Cholecalciferol [Vitamin D3 (25 1,000 unit PO DAILY 10/04/19 10/04/19 History Mcg = 1000 Iu)] Cyanocobalamin [Vitamin B-12] 500 mcg PO DAILY 10/04/19 10/04/19 History Hydrochlorothiazide 25 mg PO DAILY 10/04/19 10/04/19 History LORazepam [Ativan] 1 mg PO BID 10/04/19 10/04/19 History Nitroglycerin 0.4MG/Hr Patch 1 patch TRANSDERM DAILY 10/04/19 10/04/19 History [Nitro-Dur 0.4MG/Hr Patch] Potassium Gluconate 99 mg PO DAILY 10/04/19 10/04/19 History Simvastatin 40 mg PO DAILY 10/04/19 10/04/19 History amLODIPine [Norvasc] 2.5 mg PO DAILY 10/04/19 10/04/19 History Allergies Allergy/AdvReac Type Severity Reaction Status Date / Time No Known Allergies Allergy Verified 10/04/19 12:22 Physical Exam Vitals: Vital Signs Temp Pulse Resp BP Pulse Ox 10/05/19 13:00 79 11 L 133/80 97 10/05/19 12:30 14 133/80 98 10/05/19 12:00 98.2 F 77 9 L 114/67 98 10/05/19 11:30 72 19 96 10/05/19 11:00 71 9 L 99 10/05/19 10:30 74 14 100 10/05/19 10:25 96 10/05/19 10:00 62 15 100 10/05/19 09:30 63 16 100 10/05/19 09:00 59 L 19 100 10/05/19 08:30 64 45 H 100 10/05/19 08:05 77 10/05/19 08:00 97.3 F L 62 16 100 10/05/19 07:51 71 10/05/19 07:30 66 20 99 10/05/19 07:00 64 20 108/61 100 10/05/19 06:30 69 20 100 10/05/19 06:00 59 L 16 100 10/05/19 05:30 62 16 99 10/05/19 05:00 61 16 103/59 100 10/05/19 04:30 64 22 99 10/05/19 04:00 99.0 F 65 22 111/65 99 07/05/20 03:58 66 10/05/19 03:44 65 10/05/19 03:30 78 16 10/05/19 03:00 70 16 111/65 97 10/05/19 02:30 61 20 97 10/05/19 02:00 60 16 132/80 98 10/05/19 01:30 58 L 16 97 10/05/19 01:00 57 L 16 132/80 98 10/05/19 00:30 58 L 16 132/80 97 10/05/19 00:24 61 10/05/19 00:03 60 10/05/19 00:00 97.7 F 64 16 105/65 100 10/04/19 23:34 62 16 105/65 99 10/04/19 23:30 62 16 99 10/04/19 23:00 64 16 105/65 99 10/04/19 22:30 60 19 98 10/04/19 22:00 58 L 16 131/81 99 10/04/19 21:30 66 12 96 10/04/19 21:00 61 16 131/81 99 10/04/19 20:30 61 16 131/81 97 10/04/19 20:00 97.2 F L 60 16 87/59 96 10/04/19 19:54 62 10/04/19 19:42 64 10/04/19 19:30 66 16 87/59 93 L 10/04/19 19:00 57 L 17 87/59 99 10/04/19 18:30 59 L 16 87/59 99 10/04/19 18:00 63 16 122/79 98 10/04/19 17:30 62 16 118/77 99 10/04/19 17:22 62 10/04/19 17:03 64 10/04/19 17:00 63 17 127/84 100 10/04/19 16:30 71 16 149/97 98 10/04/19 16:00 97.7 F 81 17 162/103 98 Intake and Output 10/04/19 10/05/19 10/05/19 22:59 06:59 14:59 Intake Total 086.974 5038.816 696.801 Output Total 995 515 415 Balance -350.365 576.816 281.801 Intake: IV 535.5 600 525 Nitroglycerin-D5w Pmx 50 10.5 mg In Dextrose/Water 1 250ml.bag @ 5 MCG/MIN 1.5 mls/hr IV .Q24H [facility] Rx#: [id number] Sodium Chloride 0.9% 1, 525 600 525 000 ml @ 75 mls/hr IV . [id number] [facility] Rx#:[id number] Intake, IV Titration 109.135 491.816 171.801 Amount Amiodarone 300 mg In 233.75 Dextrose 5% in Water 250 ml @ 0.5 MG/MIN 25 mls/hr IV .Q10H [facility] Rx#: [id number] Nitroglycerin-D5w Pmx 50 8.125 mg In Dextrose/Water 1 250ml.bag @ 5 MCG/MIN 1.5 mls/hr IV .Q24H [facility] Rx#: [id number] Norepinephrine 4 mg In 16.923 82.624 108.504 Sodium Chloride 0.9% 250 ml @ 0.05 MCG/KG/MIN 16. 591 mls/hr IV .[id number] [facility] Rx#:[id number] Propofol 1,000 mg In 84.087 175.442 63.297 Empty Bag 1 bag @ Titrate IV .Q0M [facility] Rx#: [id number] Output: Urine 995 515 415 Other: Voiding Method Indwelling Catheter Indwelling Catheter Indwelling Catheter Weight 90.2 kg 90.2 kg ABP, PAP, CO, CI - Last 8 Hours Arterial Blood Pressure 125/53 Arterial Blood Pressure 124/58 Arterial Blood Pressure 122/55 Arterial Blood Pressure 116/54 Arterial Blood Pressure 109/48 Arterial Blood Pressure 106/51 Arterial Blood Pressure 107/55 Arterial Blood Pressure 99/53 Arterial Blood Pressure 116/57 Arterial Blood Pressure 95/51 Arterial Blood Pressure 116/57 Arterial Blood Pressure 88/46 Arterial Blood Pressure 96/48 Arterial Blood Pressure 120/59 GENERAL EXAM: Intubated, sedated, comfortable in no apparent distress. HEAD: Normocephalic. EYES: Normal reaction of pupils, equal size. NOSE: Clear with pink turbinates. THROAT: Endotracheal and orogastric tube secured in place. No erythema or exudates. NECK: No masses, no JVD. CHEST: No chest wall deformity. LUNGS: Equal air entry with crackles in the bilateral posterior bases. CVS: S1 and S2 normal with no audible murmur, regular rhythm. ABDOMEN: No hepatosplenomegaly, normal bowel sounds, no guarding or rigidity. SPINE: No scoliosis or deformity SKIN: No rashes CENTRAL NERVOUS SYSTEM: No focal deficits, tone is normal in all 4 extremities. EXTREMITIES: There is no peripheral edema. No clubbing, no cyanosis. Peripheral pulses are intact. Results - Laboratory Findings CBC and BMP: 10/05/19 04:30 10/05/19 04:30 ABG ABG pH 7.46 (7.35-7.45) H 10/05/19 07:35 ABG pCO2 40 mmHg (35-45) 10/05/19 07:35 ABG pO2 121 mmHg (83-108) H 10/05/19 07:35 ABG O2 Saturation 98.6 % (94-97) H 10/05/19 07:35 PT/INR, D-dimer PT 10.0 sec (9.0-12.0) 10/04/19 10:25 INR 1.0 (<1.2) 10/04/19 10:25 Abnormal lab findings: Abnormal Labs 10/04/19 10/04/19 10/04/19 10:25 10:25 10:25 WBC 12.4 H RBC Neutrophils # 9.4 H Lymphocytes # ABG pH ABG pO2 ABG HCO3 ABG Total CO2 ABG O2 Saturation Potassium BUN 25 H Creatinine 1.33 H Glucose 119 H POC Glucose (mg/dL) Calcium Troponin I 1.030 H* Urine Ketones Urine Blood Urine RBC 10/04/19 10/04/19 10/04/19 16:42 16:50 19:37 WBC RBC Neutrophils # Lymphocytes # ABG pH ABG pO2 139 H ABG HCO3 26 H ABG Total CO2 ABG O2 Saturation 98.8 H Potassium BUN Creatinine Glucose POC Glucose (mg/dL) 148 H Calcium Troponin I Urine Ketones Trace H Urine Blood Small H Urine RBC 29 H 10/05/19 10/05/19 10/05/19 04:30 04:30 07:35 WBC 15.9 H RBC 4.17 L Neutrophils # 13.9 H Lymphocytes # 0.9 L ABG pH 7.46 H ABG pO2 121 H ABG HCO3 29 H ABG Total CO2 30 H ABG O2 Saturation 98.6 H Potassium 3.2 L BUN Creatinine Glucose 137 H POC Glucose (mg/dL) Calcium 8.3 L Troponin I Urine Ketones Urine Blood Urine RBC - Diagnostic Findings Chest x-ray: image reviewed Assessment and Plan Assessment: 1 Acute myocardial infarction with subsequent cardiac arrest requiring defibrillation, CPR, intubated on mechanical ventilator 2 Acute myocardial infarction with subsequent stenting to the circumflex 3 Prior history of coronary artery disease with stent placement 3 in [place] 4 Hypertension 5 Hyperlipidemia 6 Anxiety Plan: The patient was seen and evaluated by Dr. Scott Chest x-ray, ABGs and labs reviewed The patient will be given interruption of sedation and weaning trial Plan to extubate today Continue bronchodilators Continue amiodarone We will continue to follow make further recommendations based on his clinical status I, the cosigning physician, performed a history & physical examination of the patient. Lungs sounds with crackles in the bilateral posterior bases. Ma intaining good O2 saturations in the 90s on 50% FiO2 via the mechanical ventilator. I discussed the assessment and plan of care with my nurse practitioner, Maria Fernanda Cerda. I attest to the above consultation as dictated by her. Time with Patient: Greater than 30
[2019-10-05] MEDS: AMIODARONE 200 MG TAB PO SCH (17:55)
[2019-10-05] MEDS: LISINOPRIL 10 MG TAB PO SCH (20:36)
[2019-10-05 22:43] LABS: Amphetamine Screen,Urine Not Detected (NotDetected); Barbiturate Screen,Urine Not Detected (NotDetected); Benzodiazepines Screen,Urine Detected (NotDetected); Cocaine Screen,Urine Not Detected (NotDetected); Methadone Screen, Urine Not Detected (NotDetected); Opiate Screen,Urine Not Detected (NotDetected); Oxycodone Screen, Urine Not Detected (NotDetected); Phencyclidine Screen,Urine Not Detected (NotDetected); Tricyclic Antidepressant,Urine Not Detected (NotDetected); Urn Cannabinoid Scrn Not Detected (NotDetected)
--- NOTE | 2019-10-06 03:09 | PN ---
PROGRESS NOTE DATE OF SERVICE: 10/05/2019 This 78-year-old gentleman admitted with chest pain, acute myocardial infarction, underwent cardiac catheterization and stenting. Patient also had supraventricular tachycardia. Patient episode acute hypoxic respiratory failure. Patient extubated, but currently the patient is extremely confused. A CT scan of the brain done yesterday showed only cerebral atrophy, no acute abnormality. PAST MEDICAL HISTORY: Reviewed. REVIEW OF SYSTEMS: Could not be taken, the patient is confused. CURRENT MEDICATIONS: Current medications are reviewed and include: 1. DuoNeb q.i.d. and p.r.n. 2. Cordarone. 3. Aspirin. 4. Lipitor. 5. Coreg. 6. Peridex. 7. Plavix. 8. Heparin. 9. Zestril. 10.Ativan. 11.Nitrostat. 12.Norepinephrine. 13.Protonix. PHYSICAL EXAMINATION: Patient is conscious, confused. Pulse is 102, blood pressure 139/76, respiration 21, temperature normal, pulse ox 94% on 1 L. HEENT: Conjunctivae normal. NECK: No jugular venous distention. CARDIOVASCULAR: S1, S2 muffled. RESPIRATORY: Breath sounds diminished at the bases. No rhonchi, no crackles. ABDOMEN: Soft, nontender. No mass palpable. LEGS: No edema, no swelling. NERVOUS SYSTEM: No focal deficits. LABS: WBC 15.9, hemoglobin 13.6. ABG, pH of 7.46. Sodium 137, potassium 3.2. ASSESSMENT: 1. Acute kox-SA-eopmbxx-elevation myocardial infarction, status post cardiac catheterization and stenting of subtotally occluded circumflex marginal artery. 2. Acute hypoxic respiratory failure, status post mechanical ventilation. 3. Change in mental status, acute metabolic encephalopathy, multifactorial. 4. Ventricular fibrillation, status post amiodarone drip. 5. Increased creatinine, acute renal failure with acute tubular necrosis. 6. Increased WBC. 7. History of coronary artery disease, stent. 8. History of myocardial infarction. 9. History of hypertension. 10.History of hyperlipidemia. 11.History of anxiety. 12.FULL CODE. RECOMMENDATIONS AND DISCUSSION: Recommend to continue current medications, continue symptomatic treatment. Continue with antiplatelet agents. Otherwise, ensure oxygenation, bronchodilators. The metabolic encephalopathy could be multifactorial. Chest x-ray was reviewed personally by me. Otherwise, continue to monitor. A 2D echo with Doppler is awaited. Further recommendations to follow. We will continue to monitor. Will repeat x-ray tomorrow. MMODL / IJN: [id number] / MTDDionicio
[2019-10-06] MEDS: HEPARIN SODIUM,PORCINE 5,000 UNIT/ML 1 ML VIAL SQ SCH ×4 (03:22→23:34)
[2019-10-06] MEDS: NOREPINEPHRINE 4 MG in SODIUM CHLORIDE 0.9% 250 ML IV SCH (03:22)
[2019-10-06 06:18] LABS: Basophils % (A) 0 %; Eosinophils # (A) 0.1 k/uL (0-0.7); Eosinophils % (A) 1 %; HGB 14.7 gm/dL (13.0-17.5); Lymphocytes # (A) 1.2 k/uL (1.0-4.8); Lymphocytes % (A) 9 %; MCH 32.6 pg (25.0-35.0); MCHC 34.3 g/dL (31.0-37.0); MCV 95.3 fL (80.0-100.0); Monocytes # (A) 0.8 k/uL (0-1.0); Monocytes % (A) 6 %; Neutrophils # (A) 10.7 k/uL (1.3-7.7); Neutrophils % (A) 83 %; Platelet Count 196 k/uL (150-450); RBC 4.52 m/uL (4.30-5.90); RDW 13.1 % (11.5-15.5)
[2019-10-06 06:26] LABS: Calcium 8.5 mg/dL (8.4-10.2); Potassium 3.2 mmol/L (3.5-5.1)
[2019-10-06] MEDS: CLOPIDOGREL 75 MG TAB PO SCH (07:43)
[2019-10-06] MEDS: ATORVASTATIN 80 MG TAB PO SCH (07:43)
[2019-10-06] MEDS: ASPIRIN 325 MG TAB PO SCH (07:43)
[2019-10-06] MEDS: SODIUM CHLORIDE 0.9% 1,000 ML IV SCH ×2 (07:44→23:29)
[2019-10-06] MEDS: PANTOPRAZOLE 40 MG/10 ML VIAL IV SCH (07:44)
[2019-10-06] MEDS: AMIODARONE 200 MG TAB PO SCH ×2 (07:44→20:16)
[2019-10-06] MEDS: CARVEDILOL 3.125 MG TAB PO SCH ×2 (07:44→18:26)
--- NOTE | 2019-10-06 08:39 | XR ---
EXAMINATION TYPE: XR chest 1V portable DATE OF EXAM: 10/06/2019 COMPARISON: Prior chest x-ray 10/05/2019 HISTORY: Abnormal chest x-ray, extubated TECHNIQUE: Single frontal view of the chest is obtained. FINDINGS: There is been interval removal of endotracheal and NG tube. Patient is rotated. Right maria elena diaphragm remains elevated. No evident pneumothorax. Subsegmental basilar atelectatic changes are marylu pected. Heart size is stable. Aorta is dense. There is a spinal curvature. IMPRESSION: There is some improvement in aeration at the left lung base.
[2019-10-06] MEDS: IPRATROPIUM-ALBUTEROL 3 ML NEB INHALATION SCH (08:51)
[2019-10-06] MEDS: SPIRONOLACTONE 25 MG TAB PO SCH (10:14)
[2019-10-06] MEDS: FUROSEMIDE 20 MG TAB PO SCH (10:14)
--- NOTE | 2019-10-06 12:13 | PN ---
PROGRESS NOTE PULMONARY/CRITICAL CARE PROGRESS NOTE: DATE OF SERVICE: 10/06/2019 This is a patient who was admitted to the hospital on October 03 with chest pain. The patient had a ventricular fibrillation arrest. He was defibrillated. He initially had CPR and was intubated. He was extubated on October 04. He was intubated initially on October 03. The patient did have a stent placed in his obtuse marginal branch. This was done by Dr. Hernandez and Dr. PADMAJA Loera. Currently, the patient seems to be doing reasonably well. He is not receiving any supplemental oxygen. He is getting saline at 75 mL an hour. The patient denies any chest pain or chest discomfort. He denies any shortness of breath. He is not coughing or producing any phlegm. He also denies any nausea, vomiting, diarrhea, or abdominal pain or any genitourinary complaints. As mentioned, he was extubated yesterday. Initially, his mental status was poor, but throughout the day yesterday and then throughout the night and this morning, his mental status is dramatically improved. He is quite alert and awake. Current vital signs are reviewed. Temperature is 97.9, heart rate 80, respiratory rate is 19, blood pressure 122/70 mean 92, room air saturation 96%. Appears in no acute distress. HEENT: Examination is grossly unremarkable. Mucous membranes are moist. No oral lesions. NECK: Supple, full range of motion. No adenopathy. Neck veins are flat. CARDIOVASCULAR: Examination reveals regular rhythm and rate. S1, S2 normal. No S3, S4, or murmur. LUNGS: Reveal clear breath sounds equal. No wheezes or rhonchi. ABDOMEN: Soft, bowel sounds are heard. No masses or tenderness. EXTREMITIES: Intact. No cyanosis, clubbing, or edema. SKIN: Without rash. NEUROLOGIC: Examination is brief but nonfocal. CHEST X-RAY: From October 05 shows bibasilar atelectasis, and improvement in aeration at the lung bases. The right diaphragm is chronically elevated. LABS: Reviewed. White count 13, hemoglobin 14.7, hematocrit 43.0, platelet count is normal. Sodium 139, potassium 3.2, chloride 105, CO2 is 29, anion gap is 5. BUN and creatinine were 15 and 1.22. Microbiologic studies are thus far negative. MEDICATIONS: Reviewed. Currently, the patient is on Cordarone, aspirin, Lipitor, Coreg, Plavix, Lasix, subcu heparin, updrafts, Zestril, lorazepam, sublingual nitroglycerin, norepinephrine, Protonix, potassium, Diprivan, Aldactone, and saline IV. ASSESSMENT: 1. Acute myocardial infarction, status post cardiac arrest, with defibrillation, intubation and mechanical ventilation with subsequent extubation on October 04. 2. Acute myocardial infarction with subsequent stenting of the obtuse marginal coronary artery. 3. History of coronary artery disease with previous stent placement x3. 4. History of hypertension. 5. Hyperlipidemia. 6. History of anxiety. PLAN: Please see my orders. Additional recommendations and suggestions are forthcoming. Unnecessary medications will be discontinued. His overall prognosis remains guarded, but he is in good condition. He seems to be tolerating what happened to him well. He currently denies any difficulty breathing, coughing, wheezing, phlegm production or chest pain or chest discomfort. We will continue to follow. HARSHIL / NITZAN: [id number] /
--- NOTE | 2019-10-06 16:12 | P.PN ---
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 Patient moved recently to this area and seen Dr. Carmen. Patient had a recent stress test and echocardiogram and patient told that test did not show significant abnormalities. He was admitted to the hospital with recurrent chest pains lasting several hours. His initial troponin was abnormal in the range of more than 1. Minimally of ongoing chest pain. Patient was advised to have cardiac catheterization. His EKG showed some T-wave inversion in inferior leads and evidence of old anteroseptal ME. Unfortunately, patient went into ventricular tachycardia fibrillation before. Patient went on cardiac cath table. Patient required brief CPR and defibrillation. Patient regained consciousness and hemodynamically stable but developed a progressive confusion and And combative during and after the cardiac cath and intervention. Patient had stent placement of the OM branch of the circumflex. Hemodynamically patient is stable. Hasn't had any recurrence of ventricular fibrillation. Patient is on amiodarone drip. We'll discontinue amiodarone after the tip is done. Patient is still intubated and sedated. His chest x-ray doesn't show any evidence of CHF. We'll get a neurology consult. He had his computed tomography scan of the brain which was negative. We'll have to consider weaning off the respirator if patient can tolerate. Overall prognosis is guarded. 10/06/2019: Patient is extubated yesterday. He is looking much better. He seemed to be oriented and recall his past medical history very well. He does denies any chest pain or shortness of breath. A chest x-ray doesn't show any significant CHF. His lungs are clear. Heart is regular. Overall patient had made remarkable progress. We'll increase his activity. We'll consider possible discharge within next 24-48 hours Objective - Vital Signs Vital signs: Vital Signs Temp 98.2 F 10/06/19 15:00 Pulse 72 10/06/19 15:00 Resp 18 10/06/19 15:00 BP 96/62 10/06/19 15:00 Pulse Ox 94 L 10/06/19 15:00 Intake & Output 10/05/19 10/06/19 10/06/19 18:59 06:59 18:59 Intake Total 1171.801 900 350 Output Total 415 465 Balance 756.801 435 350 Weight 90.2 kg 91.4 kg Intake: IV 750 750 Sodium Chloride 0.9% 1, 750 750 000 ml @ 75 mls/hr IV . [id number] SHIRA Rx#:[id number] Intake, IV Titration 421.801 Amount Amiodarone 300 mg In 250 Dextrose 5% in Water 250 ml @ 0.5 MG/MIN 25 mls/hr IV .Q10H SHIRA Rx#: [id number] Norepinephrine 4 mg In 108.504 Sodium Chloride 0.9% 250 ml @ 0.05 MCG/KG/MIN 16. 591 mls/hr IV .[id number] SHIRA Rx#:[id number] Propofol 1,000 mg In 63.297 Empty Bag 1 bag @ Titrate IV .Q0M SHIRA Rx#: [id number] Oral 150 350 Output: Urine 415 465 Other: Voiding Method Indwelling Catheter Indwelling Catheter Diaper # Voids 1 3 ABP, PAP, CO, CI - Last Documented Arterial Blood Pressure 125/53 - Exam GENERAL EXAM: Patient is extubated. Alert and oriented HEENT: Normocephalic. Normal reaction of pupils, equal size, normal range of e xtraocular motion. No erythema or exudates in the throat. NECK: No masses, no nuchal rigidity. CHEST: No chest wall deformity. LUNGS: Equal air entry with no crackles or wheeze. HEART: S1 and S2 normal ABDOMEN: No hepatosplenomegaly, normal bowel sounds, no guarding or rigidity. SKIN: No rashes CENTRAL NERVOUS SYSTEM: Intubated and sedated EXTREMITIES: No cyanosis, clubbing or edema. PUNCTURE SITE: Right wrist. Appears to be soft without any significant edema. Radial pulse is preserved - Labs CBC & Chem 7: 10/06/19 05:40 10/06/19 05:40 Labs: Abnormal Lab Results - Last 24 Hours (Table) 10/05/19 10/06/19 10/06/19 Range/Units 22:22 05:40 05:40 WBC 13.0 H (3.8-10.6) k/uL Neutrophils # 10.7 H (1.3-7.7) k/uL Potassium 3.2 L (3.5-5.1) mmol/L U Benzodiazepines Scrn Detected H (NotDetected) Microbiology - Last 24 Hours (Table) 10/05/19 00:01 Gram Stain - Preliminary Sputum Sputum Culture - Preliminary Assessment and Plan (1) Q waves suggestive of previous myocardial infarction Current Visit: Yes Status: Acute Code(s): R94.31 - ABNORMAL E LECTROCARDIOGRAM [ECG] [EKG] SNOMED Code(s): 443119536 (2) Acute non-ST elevation myocardial infarction (NSTEMI) Current Visit: Yes Status: Acute Code(s): I21.4 - NON-ST ELEVATION (NSTEMI) MYOCARDIAL INFARCTION SNOMED Code(s): 563005545 (3) Chronic renal failure Current Visit: Yes Status: Acute Code(s): N18.9 - CHRONIC KIDNEY DISEASE, UNSPECIFIED SNOMED Code(s): 18140626 Plan: Patient is status post cardiac arrest in the setting of non-ST elevation ME. Status post stenting of the OM branch of the circumflex. Currently extubated and seemed to be clinically stable and oriented. Patient activated to be increased. Continue current medical therapy. Possible discharge within next 24 hours
--- NOTE | 2019-10-06 17:31 | PN ---
PROGRESS NOTE DATE OF SERVICE: 10/06/2019 This 78-year-old gentleman admitted with chest pain and myocardial infarction underwent cardiac catheterization and stenting. The patient also had supraventricular tachycardia and an episode of hypoxic respiratory failure. The patient was mechanically ventilated. After extubation, the patient was confused. The most recent chest x-ray, which was reviewed personally by me, showed some increased bronchovascular markings. No chest pain. No palpitations. No fever. Past medical history reviewed. REVIEW OF SYSTEMS: CARDIOVASCULAR SYSTEM: No angina, palpitations. RESPIRATORY SYSTEM: As mentioned earlier. GI: As mentioned earlier. : No dysuria or retention. NERVOUS SYSTEM: No numbness, weakness. CURRENT MEDICATIONS: 1. Cordarone 400 mg p.o. b.i.d. 2. Aspirin 320 mg daily. 3. Lipitor 80 mg daily. 4. Coreg 3.125 mg daily. 5. Plavix. 6. Lasix. 7. Zestril. 8. Ativan. 9. Replacement protocol. 10.Aldactone. PHYSICAL EXAMINATION: Patient is alert, oriented x2. Pulse is 82. Blood pressure 112/70, respiration 27, temperature 97.9, pulse ox 96% on room air. HEENT: Conjunctivae normal. NECK: No jugular venous distention. CARDIOVASCULAR SYSTEM: S1, S2 muffled. RESPIRATORY SYSTEM: Breath sounds diminished at the bases. A few scattered rhonchi. ABDOMEN: Soft, non-tender. LEGS: No edema. No swelling. NERVOUS SYSTEM: No focal deficit. LABS: WBC 13, hemoglobin 14.7. Sodium 139, potassium 3.2. UA with benzodiazepines. ASSESSMENT: 1. Acute xwe-FF-pdwszye-elevation myocardial infarction, status post cardiac catheterization and stenting of the subtotally occluded circumflex marginal artery. 2. Acute hypoxic respiratory failure, status post mechanical ventilation. 3. Change in mental status, acute metabolic encephalopathy, multifactorial. 4. Gait dysfunction. 5. Ventricular fibrillation, status post amiodarone drip. 6. Increased creatinine and acute renal failure with acute tubular necrosis. 7. Increased white count. 8. History of coronary artery disease, stent. 9. History of myocardial infarction. 10.History of hypertension. 11.History of hyperlipidemia. 12.History of anxiety. 13.FULL CODE. RECOMMENDATIONS AND DISCUSSION: I recommend to continue current medications, continue with the monitoring, symptomatic treatment. Repeat labs. PT/OT evaluation. Continue with the beta blockers. Increase ambulation. Closely follow with multiple consultants. Chest x-ray was reviewed personally by me. Otherwise prognosis guarded. Further recommendations to follow. MMODL / IJN: [id number] /
[2019-10-06] MEDS: LISINOPRIL 10 MG TAB PO SCH (20:16)
[2019-10-06] MEDS: LORazepam 2 MG/ML INJ IV PRN (21:54)
[2019-10-07 05:25] LABS: Basophils % (A) 1 %; Eosinophils # (A) 0.2 k/uL (0-0.7); Eosinophils % (A) 2 %; HCT 42.2 % (39.0-53.0); HGB 14.2 gm/dL (13.0-17.5); Lymphocytes # (A) 1.4 k/uL (1.0-4.8); Lymphocytes % (A) 15 %; MCH 32.4 pg (25.0-35.0); MCHC 33.6 g/dL (31.0-37.0); MCV 96.3 fL (80.0-100.0); Mean Platelet Volume 8.8; Monocytes # (A) 0.6 k/uL (0-1.0); Monocytes % (A) 6 %; Neutrophils # (A) 7.1 k/uL (1.3-7.7); Neutrophils % (A) 75 %; Platelet Count 192 k/uL (150-450); RBC 4.39 m/uL (4.30-5.90); RDW 13.2 % (11.5-15.5); WBC 9.5 k/uL (3.8-10.6)
[2019-10-07 05:31] LABS: Calcium 8.2 mg/dL (8.4-10.2); Potassium 3.1 mmol/L (3.5-5.1)
[2019-10-07] MEDS: POTASSIUM CHLORIDE ER 20 MEQ TAB.ER PO SCH ×2 (06:11→06:59)
[2019-10-07] MEDS: CARVEDILOL 3.125 MG TAB PO SCH (06:59)
--- NOTE | 2019-10-07 08:12 | P.PN ---
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 He presented to the emergency room yesterday with complaints of chest pain feeling similar to his previous heart attack. EKG showed ST depression in the inferior leads and evidence of an old anteroseptal NM. Troponins were positive. He was taken to the [facility] where he did sustain a V. fib arrest with subsequent shop in CPR and return of spontaneous circulation he was however intubated and proceeded to have stenting of a subtotally occluded circumflex coronary artery. He was then admitted to the ICU on the mechanical ventilator. He is seen today in consultation in the ICU. Current vent settings are assist control at a rate of 16, tidal volume 450, FiO2 50% and a PEEP of 5. Arterial blood gases revealed a pO2 of 121, pCO2 of 40 and a pH of 7.46. White count 15.9. Hemoglobin 13.6. Sodium 137. Potassium 3.2. Creatinine 1.18. Sputum culture pending. Chest x-ray showed bilateral infiltrates and tiny effusions more so on the right. He's been initiated on DuoNeb inhalations, 0.9 normal saline at 75 ML's per hour. Amiodarone at 0.5 mg/m and sedated on propofol. On 10/07/2019 patient seen in follow-up in the intensive care unit, she has been awaiting a bed on selective care unit, no acute events overnight, he remained in sinus rhythm with a rate of 77 BPM, hemodynamically stable, no compensatory shortness of breath or chest pain. IV fluids have been hep-locked, lung sounds are clear diminished at the bases, today's chest x-ray has been reviewed, showing some improvement in aeration at the left lung base. Subsequent mental basilar atelectatic changes. Patient is on oral Lasix, lung sounds are clear to auscultation. Patient is on coming in addition of carvedilol, lisinopril, Aldactone, aspirin, amiodarone, and Plavix, and there has been no recurrence of arrhythmias. Patient is alert and oriented 3. Objective - Vital Signs Vital signs: Vital Signs Temp 97.9 F 10/07/19 00:00 Pulse 77 10/07/19 00:00 Resp 20 10/07/19 00:00 BP 111/69 10/07/19 00:00 Pulse Ox 95 10/07/19 00:00 Intake & Output 10/06/19 10/07/19 10/07/19 18:59 06:59 18:59 Intake Total 350 1000 Output Total 500 150 Balance 350 500 -150 Intake: Oral 350 1000 Output: Urine 500 150 Other: Voiding Method Diaper Urinal # Voids 3 ABP, PAP, CO, CI - Last Documented Arterial Blood Pressure 125/53 - Exam GENERAL EXAM: Alert, very pleasant, 78-year-old white male, on room air, with a pulse ox of 95% comfortable in no apparent distress. HEAD: Normocephalic/atraumatic. EYES: Normal reaction of pupils, equal size. Conjunctiva pink, sclera white. NOSE: Clear with pink turbinates. THROAT: No erythema or exudates. NECK: No masses, no JVD, no thyroid enlargement, no adenopathy. CHEST: No chest wall deformity. Symmetrical expansion. LUNGS: Equal air entry with no crackles, wheeze, rhonchi or dullness. CVS: Regular rate and rhythm, normal S1 and S2, no gallops, no murmurs, no rubs ABDOMEN: Soft, nontender. No hepatosplenomegaly, normal bowel sounds, no guarding or rigidity. EXTREMITIES: No clubbing, no edema, no cyanosis, 2+ pulses and upper and lower extremities. MUSCULOSKELETAL: Muscle strength and tone normal. SPINE: No scoliosis or deformity SKIN: No rashes CENTRAL NERVOUS SYSTEM: Alert and oriented -3. No focal deficits, tone is normal in all 4 extremities. PSYCHIATRIC: Alert and oriented -3. Appropriate affect. Intact judgment and i nsight. - Labs CBC & Chem 7: 10/07/19 05:04 10/07/19 05:04 Labs: Abnormal Lab Results - Last 24 Hours (Table) 10/07/19 Range/Units 05:04 Sodium 136 L (137-145) mmol/L Potassium 3.1 L (3.5-5.1) mmol/L Creatinine 1.29 H (0.66-1.25) mg/dL Calcium 8.2 L (8.4-10.2) mg/dL Assessment and Plan Plan: Assessment: 1 Acute myocardial infarction with subsequent cardiac arrest requiring defibrillation, CPR, and mechanical ventilator support, patient was successfully weaned and extubated on 10/05/2019 2 Acute myocardial infarction with subsequent stenting to the circumflex 3 Prior history of coronary artery disease with stent placement 3 in [place] 4 Hypertension 5 Hyperlipidemia 6 Anxiety Plan: Today's chest x-ray has been reviewed, showing bibasilar atelectasis, and improvement in aeration at the lung bases, with elevated right diaphragm. No signs have remained stable, no acute issues overnight, hemodynamically patient is stable, no completing shortness of breath or chest pain. Increase activity as tolerated. Possible discharge home today ending clearance from cardiology I performed a history & physical examination of the patient and discussed their management with my nurse practitioner, Rebeca Whitman. I reviewed the nurse practitioner's note and agree with the documented findings and plan of care. Lung sounds are positive for her breath sounds. The findings and the impression was discussed with the patient. I attest to the documentation by the nurse practitioner. Time with Patient: Less than 30
--- NOTE | 2019-10-07 08:35 | XR ---
EXAMINATION TYPE: XR chest 1V portable DATE OF EXAM: 10/07/2019 Comparison: 10/06/2019 Clinical History: 78-year-old male Tube placement Findings: Heart upper limits of normal in size. Large bands of atelectasis in the lower lungs. There is some bl unting of the costophrenic angles. Trace effusions are difficult to exclude. Similar asymmetric eleva tion right hemidiaphragm. Upper and mid lungs are clear. Impression: Bands of bibasilar atelectasis persist. Blunted costophrenic angles; trace effusions difficult to exc lude.
[2019-10-07] MEDS: PANTOPRAZOLE 40 MG/10 ML VIAL IV SCH (08:38)
[2019-10-07] MEDS: SODIUM CHLORIDE 0.9% 1,000 ML IV SCH (08:38)
[2019-10-07] MEDS: HEPARIN SODIUM,PORCINE 5,000 UNIT/ML 1 ML VIAL SQ SCH (08:39)
[2019-10-07] MEDS: AMIODARONE 200 MG TAB PO SCH (08:39)
[2019-10-07] MEDS: ASPIRIN 325 MG TAB PO SCH (08:39)
[2019-10-07] MEDS: ATORVASTATIN 80 MG TAB PO SCH (08:39)
[2019-10-07] MEDS: FUROSEMIDE 20 MG TAB PO SCH (08:39)
[2019-10-07] MEDS: SPIRONOLACTONE 25 MG TAB PO SCH (08:39)
[2019-10-07] MEDS: CLOPIDOGREL 75 MG TAB PO SCH (08:39)
[2019-10-07 10:32] VITALS: BP 124/85; PULSE 84; RESP 16; TEMP 98.3
--- NOTE | 2019-10-07 14:48 | P.PN ---
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 Patient moved recently to this area and seen Dr. Carmen. Patient had a recent stress test and echocardiogram and patient told that test did not show significant abnormalities. He was admitted to the hospital with recurrent chest pains lasting several hours. His initial troponin was abnormal in the range of more than 1. Minimally of ongoing chest pain. Patient was advised to have cardiac catheterization. His EKG showed some T-wave inversion in inferior leads and evidence of old anteroseptal [place]. Unfortunately, patient went into ventricular tachycardia fibrillation before. Patient went on cardiac cath table. Patient required brief CPR and defibrillation. Patient regained consciousness and hemodynamically stable but developed a progressive confusion and And combative during and after the cardiac cath and intervention. Patient had stent placement of the OM branch of the circumflex. Hemodynamically patient is stable. Hasn't had any recurrence of ventricular fibrillation. Patient is on amiodarone drip. We'll discontinue amiodarone after the tip is done. Patient is still intubated and sedated. His chest x-ray doesn't show any evidence of CHF. We'll get a neurology consult. He had his computed tomography scan of the brain which was negative. We'll have to consider weaning off the respirator if patient can tolerate. Overall prognosis is guarded. 10/06/2019: Patient is extubated yesterday. He is looking much better. He seemed to be oriented and recall his past medical history very well. He does denies any chest pain or shortness of breath. A chest x-ray doesn't show any significant CHF. His lungs are clear. Heart is regular. Overall patient had made remarkable progress. We'll increase his activity. We'll consider possible discharge within next 24-48 hours 10/07/2019: This patient remains stable. Denies any chest pain or shortness of breath. No arrhythmias are detected. Chest x-ray doesn't show any significant findings of CHF. Her vital signs have been stable. Patient is being discharged home. He'll continue current medical therapy. Follow-up in the office in one week time. Patient is advised not to do any heavy exertion. Patient will continue with dual antiplatelet agents. Objective - Vital Signs Vital signs: Vital Signs Temp 98.3 F 10/07/19 08:00 Pulse 84 10/07/19 10:00 Resp 16 10/07/19 08:00 BP 124/85 10/07/19 08:00 Pulse Ox 95 10/07/19 08:00 Intake & Output 10/06/19 10/07/19 10/07/19 18:59 06:59 18:59 Intake Total 350 1000 Output Total 500 150 Balance 350 500 -150 Intake: Oral 350 1000 Output: Urine 500 150 Other: Voiding Method Diaper Urinal Toilet Urinal # Voids 3 1 # Bowel Movements 1 ABP, PAP, CO, CI - Last Documented Arterial Blood Pressure 125/53 - Exam GENERAL EXAM: Patient is extubated. Alert and oriented HEENT: Normocephalic. Normal reaction of pupils, equal size, normal range of extraocular motion. No erythema or exudates in the throat. NECK: No masses, no nuchal rigidity. CHEST: No chest wall deformity. LUNGS: Equal air entry with no crackles or wheeze. HEART: S1 and S2 normal ABDOMEN: No hepatosplenomegaly, normal bowel sounds, no guarding or rigidity. SKIN: No rashes CENTRAL NERVOUS SYSTEM: Intubated and sedated EXTREMITIES: No cyanosis, clubbing or edema. PUNCTURE SITE: Right wrist. Appears to be soft without any significant edema. Radial pulse is preserved - Labs CBC & Chem 7: 10/07/19 05:04 10/07/19 09:37 Labs: Abnormal Lab Results - Last 24 Hours (Table) 10/07/19 Range/Units 05:04 Sodium 136 L (137-145) mmol/L Potassium 3.1 L (3.5-5.1) mmol/L Creatinine 1.29 H (0.66-1.25) mg/dL Calcium 8.2 L (8.4-10.2) mg/dL Microbiology - Last 24 Hours (Table) 10/05/19 00:01 Gram Stain - Final Sputum Sputum Culture - Final Assessment and Plan (1) Q waves suggestive of previous myocardial infarction Current Visit: Yes Status: Acute Code(s): R94.31 - ABNORMAL ELECTROCARDIOGRAM [ECG] [EKG] SNOMED Code(s): 170051608 (2) Acute non-ST elevation myocardial infarction (NSTEMI) Current Visit: Yes Status: Acute Code(s): I21.4 - NON-ST ELEVATION (NSTEMI) MYOCARDIAL INFARCTION SNOMED Code(s): 299018669 (3) Chronic renal failure Current Visit: Yes Status: Acute Code(s): N18.9 - CHRONIC KIDNEY DISEASE, UNSPECIFIED SNOMED Code(s): 29680391 Plan: Clinically stable. No complaints of chest pain or shortness of breath. No arrhythmias. Continue current medical therapy. Follow-up in the office in one week
--- NOTE | 2019-10-07 16:21 | P.DS ---
Providers Date of admission: 10/04/19 11:36 Attending physician: Mariah Ramirez Consults: 10/04/19 11:36 Consult Physician Urgent Consulting Provider: [facility] Consult Reason/Comments: N STEMI Do you want consulting provider notified?: Yes 10/04/19 15:09 Consult Physician Urgent Consulting Provider: Diana Scott Consult Reason/Comments: ventilator and icu management Do you want consulting provider notified?: Already Contacted Primary care physician: [facility] Course: patient admitted post cardiac arrest and acute non-ST elevation microinfarction patient was initially on mechanical ventilator subsequently weaned off patient had any of around 30-35%. Patient received stents to circumflex. Patient is euvolemic and stable at this time except for mildly poor renal function with creatinine 1.2. His lines and evidence of sepsis is but patient had reactive leukocytosis of 15,900 which has normalized. Patient creatinine although went up from 1.11-1.29, this need to be repeated again down the linepatient is presently euvolemic. Patient is being discharged today in stable medical condition to home. PHYSICAL EXAMINATION: GENERAL: The patient is alert and oriented x3, not in any acute distress. Well developed, well nourished. HEENT: Pupils are round and equally reacting to light. EOMI. No scleral icterus. No conjunctival pallor. Normocephalic, atraumatic. No pharyngeal erythema. No thyromegaly. CARDIOVASCULAR: S1 and S2 present. No murmurs, rubs, or gallops. PULMONARY: Chest is clear to auscultation, no wheezing or crackles. ABDOMEN: Soft, nontender, nondistended, normoactive bowel sounds. No palpable organomegaly. MUSCULOSKELETAL: No joint swelling or deformity. EXTREMITIES: No cyanosis, clubbing, or pedal edema. NEUROLOGICAL: Gross neurological examination did not reveal any focal deficits. SKIN: No rashes. for rest of the medical problems and hospital physician course please refer to progress note from Dr. Ramirez from yesterday Plan - Discharge Summary Discharge Rx Participant: No New Discharge Prescriptions: New Spironolactone [Aldactone] 12.5 mg PO DAILY #30 tab Amiodarone [Cordarone] 400 mg PO BID #60 tab Carvedilol [Coreg] 3.125 mg PO BID-W/MEALS tab Apixaban [Eliquis] 2.5 mg PO BID tablet Furosemide [Lasix] 20 mg PO DAILY #30 tab Atorvastatin [Lipitor] 80 mg PO DAILY #30 tab Clopidogrel [Plavix] 75 mg PO DAILY #30 tab Potassium Citrate [Potassium Citrate ER] 20 meq PO DAILY #30 tablet.er Lisinopril [Zestril] 10 mg PO HS #30 tab Aspirin 81 mg PO DAILY #30 chewable Continue Cyanocobalamin [Vitamin B-12] 500 mcg PO DAILY Cholecalciferol [Vitamin D3 (25 Mcg = 1000 Iu)] 1,000 unit PO DAILY Simvastatin 40 mg PO DAILY Nitroglycerin 0.4MG/Hr Patch [Nitro-Dur 0.4MG/Hr Patch] 1 patch TRANSDERM DAILY LORazepam [Ativan] 1 mg PO BID Potassium Gluconate 99 mg PO DAILY Discontinued amLODIPine [Norvasc] 2.5 mg PO DAILY Apixaban [Eliquis] 5 mg PO BID Hydrochlorothiazide 25 mg PO DAILY Carvedilol [Coreg] 6.25 mg PO BID Aspirin [Adult Low Dose Aspirin EC] 81 mg PO DAILY Discharge Medication List Cholecalciferol [Vitamin D3 (25 Mcg = 1000 Iu)] 1,000 unit PO DAILY 10/04/19 [History] Cyanocobalamin [Vitamin B-12] 500 mcg PO DAILY 10/04/19 [History] LORazepam [Ativan] 1 mg PO BID 10/04/19 [History] Nitroglycerin 0.4MG/Hr Patch [Nitro-Dur 0.4MG/Hr Patch] 1 patch TRANSDERM DAILY 10/04/19 [History] Potassium Gluconate 99 mg PO DAILY 10/04/19 [History] Simvastatin 40 mg PO DAILY 10/04/19 [History] Amiodarone [Cordarone] 400 mg PO BID #60 tab 10/07/19 [Rx] Apixaban [Eliquis] 2.5 mg PO BID tablet 10/07/19 [Rx] Aspirin 81 mg PO DAILY #30 chewable 10/07/19 [Rx] Atorvastatin [Lipitor] 80 mg PO DAILY #30 tab 10/07/19 [Rx] Carvedilol [Coreg] 3.125 mg PO BID-W/MEALS tab 10/07/19 [Rx] Clopidogrel [Plavix] 75 mg PO DAILY #30 tab 10/07/19 [Rx] Furosemide [Lasix] 20 mg PO DAILY #30 tab 10/07/19 [Rx] Lisinopril [Zestril] 10 mg PO HS #30 tab 10/07/19 [Rx] Potassium Citrate [Potassium Citrate ER] 20 meq PO DAILY #30 tablet.er 10/07/19 [Rx] Spironolactone [Aldactone] 12.5 mg PO DAILY #30 tab 10/07/19 [Rx] Follow up Appointment(s)/Referral(s): Shane Hernandez MD [STAFF PHYSICIAN] - 1 Week (The rim roller operator office will contact you with a date and time for your appointment. If you have not heard from them by Sunday afternoon, please contact them with the above phone number.) Abdiel Garza MD [Primary Care Provider] - 10/09/19 10:30 am Patient Instructions/Handouts: Chest Pain (GEN), Coronary Intravascular Stent Placement (GEN) Discharge Disposition: HOME SELF-CARE
[2019-10-07] MEDS ORDERED: APIXABAN 2.5 MG TABLET PO SCH (21:00)
--- NOTE | 2019-10-08 16:02 | ECHOF ---
Referral Reason:Chest pain and cardiomyopathy MEASUREMENTS -------- HEIGHT: 182.9 cm WEIGHT: 81.6 kg BP: RVIDd: 3.3 cm (< 3.3) IVSd: 1.2 cm (0.6 - 1.1) LVIDd: 4.5 cm (3.9 - 5.3) LVPWd: 1.3 cm (0.6 - 1.1) IVSs: 1.4 cm LVIDs: 4.1 cm LVPWs: 1.4 cm LA Diam: 3.5 cm (2.7 - 3.8) LAESV Index (A-L): 17.64 ml/m Ao Diam: 3.3 cm (2.0 - 3.7) AV Cusp: 1.5 cm (1.5 - 2.6) LA Diam: 3.9 cm (2.7 - 3.8) MV EXCURSION: 16.388 mm (> 18.000) MV EF SLOPE: 118 mm/s (70 - 150) EPSS: 0.8 cm MV E Eder: 0.84 m/s MV DecT: 213 ms MV A Eder: 0.58 m/s MV E/A Ratio: 1.44 AV maxP.33 mmHg AV meanP.81 mmHg RAP: 5.00 mmHg RVSP: 21.33 mmHg FINDINGS -------- Undetermined rhythm. This was a techncally difficult study with suboptimal views, , Lumason utilized for enhancement of im ages. The left ventricular size is normal. There is mild concentric left ventricular hypertrophy. There is moderate global hypokinesis of LV . Overall left ventricular systolic function is moderate-debora rely impaired with, an EF between 30 - 35 %. Apical anterior LV wall motion is hypokinetic. Ante rseptal Hypokinesis Lateral hypokinesis Inferior Hypokinesis The right ventricle is normal in size. The left atrial size is normal. The right atrial size is normal. 5.0mg OF Lumason UTLIZED: 2 OR MORE WALL SEGMENTS NOT VISUALIZED. There is mild aortic valve sclerosis. Peak/mean gradient across the Aortic Valve is 8.33mmHg / 4.81 mmHg. Mild mitral annular calcification present. Mild mitral regurgitation is present. Mild tricuspid regurgitation present. Right ventricular systolic pressure is normal at < 35 mmHg. Trace/mild (physiologic) pulmonic regurgitation. Possible Thrombus in LV [employer] The aortic root size is normal. There is no pericardial effusion. CONCLUSIONS -------- 1. Undetermined rhythm. 2. This was a techncally difficult study with suboptimal views, , Lumason utilized for enhancement of images. 3. The left ventricular size is normal. 4. There is mild concentric left ventricular hypertrophy. 5. There is moderate global hypokinesis of LV . 6. Overall left ventricular systolic function is moderate-severely impaired with, an EF between 30 - 35 %. 7. Apical anterior LV wall motion is hypokinetic. 8. Anterseptal Hypokinesis 9. Lateral hypokinesis 10. Inferior Hypokinesis 11. The right ventricle is normal in size. 12. The left atrial size is normal. 13. The right atrial size is normal. 14. 5.0mg OF Lumason UTLIZED: 2 OR MORE WALL SEGMENTS NOT VISUALIZED. 15. There is mild aortic valve sclerosis. 16. Peak/mean gradient across the Aortic Valve is 8.33mmHg / 4.81mmHg. 17. Mild mitral annular calcification present. 18. Mild mitral regurgitation is present. 19. Mild tricuspid regurgitation present. 20. Right ventricular systolic pressure is normal at < 35 mmHg. 21. Trace/mild (physiologic) pulmonic regurgitation. 22. Possible Thrombus in LV [employer] 23. The aortic root size is normal. 24. There is no pericardial effusion. ASSOCIATE DIRECTOR FINANCIAL AID: Jo Ann Rojas RDCS
== END 2019-10-07 15:22 | disposition home or self-care (01) | DRG 246 ==
LOC: EC 10:02 → 3SCARD 11:36 → 2SICU 13:34
PROVIDERS: ADMIT Hospitalist; ATTEND Hospitalist
PROC: 027034Z Dilation of Coronary Artery, One Artery with Drug-eluting Intraluminal Device, Percutaneous Approach (ICD-10-PCS; principal; 2019-10-04 12:37)
PROC: 4A023N7 Measurement of Cardiac Sampling and Pressure, Left Heart, Percutaneous Approach (ICD-10-PCS; 2019-10-04 12:37)
PROC: B2111ZZ Fluoroscopy of Multiple Coronary Arteries using Low Osmolar Contrast (ICD-10-PCS; 2019-10-04 12:37)
PROC: 5A1935Z Respiratory Ventilation, Less than 24 Consecutive Hours (ICD-10-PCS; 2019-10-04 12:37)
PROC: 0BH17EZ Insertion of Endotracheal Airway into Trachea, Via Natural or Artificial Opening (ICD-10-PCS; 2019-10-04 12:37)
DX: I21.4 Non-ST elevation (NSTEMI) myocardial infarction (principal); I49.01 Ventricular fibrillation; I46.2 Cardiac arrest due to underlying cardiac condition; J96.01 Acute respiratory failure with hypoxia; G93.41 Metabolic encephalopathy; N17.0 Acute kidney failure with tubular necrosis; I47.1 Supraventricular tachycardia; I25.10 Atherosclerotic heart disease of native coronary artery without angina pectoris; E78.5 Hyperlipidemia, unspecified; F41.9 Anxiety disorder, unspecified; F32.9 Major depressive disorder, single episode, unspecified; I12.9 Hypertensive chronic kidney disease with stage 1 through stage 4 chronic kidney disease, or unspecified chronic kidney disease; N18.9 Chronic kidney disease, unspecified; Z11.59 Encounter for screening for other viral diseases; I25.2 Old myocardial infarction; Z95.5 Presence of coronary angioplasty implant and graft; Z79.01 Long term (current) use of anticoagulants; Z79.82 Long term (current) use of aspirin; Z79.899 Other long term (current) drug therapy
CPT/HCPCS: 36415; 70450; 71045; 71046; 80048; 80053; 80061; 80306; 81001; 82805; 83735; 84100; 84132; 84484; 85025; 85610; 85730; 87070; 87205; 92950; 93005; 93306; 93454; 94002; 94003; 94640; 96365; 96375; 99291

== ENCOUNTER 2020-10-27 10:58 | Emergency (ER) | payer MEDICARE ==
[2020-10-27 11:04] VITALS: RESP 16; TEMP 97.7
--- NOTE | 2020-10-27 11:37 | ED ---
General Adult HPI - General Chief complaint: Chest Pain Stated complaint: chest pain Time Seen by Provider: 10/27/20 11:02 Source: patient Mode of arrival: ambulatory Limitations: no limitations - History of Present Illness Initial comments: Dictation was produced using [employer] dictation software. please excuse any grammatical, word or spelling errors. Chief Complaint: 80-year-old male past medical history of coronary artery disease, coronary artery stents presents emergency for chest pain History of Present Illness: Is an 80-year-old male who presents emergency department for chest pain. Yesterday he began having symptoms of intermittent episodes of chest pressure. He went to [facility] where he was evaluated. It was recommended to him to be admitted overnight for cardiac MONITORING. He refuses and so was discharged. He states that he is continued to have episodes of chest pain. States that currently he does not have any pain however has been having increased frequency and duration and severity of chest pressure symptoms. He states is similar to his heart attacks in the past except with his heart attacks or symptoms are usually constant. Denies any radiation of symptoms and the jaw or arm. No associated diaphoresis. The ROS documented in this emergency department record has been reviewed and confirmed by me. Those systems with pertinent positive or negative responses have been documented in the HPI. All other systems are other negative and/or noncontributory. PHYSICAL EXAM: General Impression: Alert and oriented x3, not in acute distress HEENT: Normocephalic atraumatic, extra-ocular movements intact, pupils equal and reactive to light bilaterally, mucous membranes moist. Cardiovascular: Heart regular rate and rhythm Chest: Able to complete full sentences, no retractions, no tachypnea Abdomen: abdomen soft, non-tender, non-distended, no organomegaly Musculoskeletal: Pulses present and equal in all extremities, no peripheral edema Motor: no focal deficits noted Neurological: CN II-XII grossly intact, no focal motor or sensory deficits noted Skin: Intact with no visualized rashes Psych: Normal affect and mood ED course: 80-year-old male past medical history of coronary artery disease and multiple cornery artery stents presents emergency department for chest pain signs upon arrival are within acceptable limits. Laboratory evaluation obtained. CBC, coag panel, metabolic panel is unremarkable. Troponins negative. Chest x-ray is unremarkable. Disposition options were discussed with patient he would prefer to go home despite being high risk and having only one troponin. Patient states that his troponin from yesterday was negative. He understands that he could be having a major adverse cardiac event. He understands that his workup is incomplete. He however continues to endorse wanting to be discharged. He states that he will follow up as soon as possible with primary care doctor or sanitation technician. Patient offered aspirin he states he took 4 baby aspirin this morning already. Patient refusing aspirin here. He understands that once he gets home he could have worsening symptoms which may lead to consultations from major adverse cardiac event. EKG interpretation: Ventricular rate 72, normal sinus rhythm,. Interval 90, QRS 124, QTc 442. No VT prolongation, no QTC prolongation, no ST or T-wave changes noted. EKG compared to 10/04/2019 showing no changes. Overall, this EKG is unremarkable - Related Data Home Medications Medication Instructions Recorded Confirmed Cyanocobalamin [Vitamin B-12] 500 mcg PO DAILY 10/04/19 10/27/20 LORazepam [Ativan] 1 mg PO BID PRN 10/04/19 10/27/20 Nitroglycerin 0.4MG/Hr Patch 1 patch TRANSDERM DAILY PRN 10/04/19 10/27/20 [Nitro-Dur 0.4MG/Hr Patch] Potassium Gluconate 99 mg PO DAILY 10/04/19 10/27/20 Amiodarone [Cordarone] 100 mg PO DAILY 10/27/20 10/27/20 Apixaban [Eliquis] 5 mg PO DAILY 10/27/20 10/27/20 Riboflavin (Vitamin B2) [Vitamin 50 mg PO DAILY 10/27/20 10/27/20 B-2] carvediloL [Coreg] 6.25 mg PO BID 10/27/20 10/27/20 Previous Rx's Medication Instructions Recorded Aspirin 81 mg PO DAILY #30 chewable 10/07/19 Atorvastatin [Lipitor] 80 mg PO DAILY #30 tab 10/07/19 Spironolactone [Aldactone] 12.5 mg PO DAILY #30 tab 10/07/19 Allergies Allergy/AdvReac Type Severity Reaction Status Date / Time No Known Allergies Allergy Verified 10/27/20 12:09 Review of Systems ROS Statement: Those systems with pertinent positive or pertinent negative responses have been documented in the HPI. ROS Other: All systems not noted in ROS Statement are negative. Past Medical History Past Medical History: Coronary Artery Disease (CAD), Hyperlipidemia, Hypertensi on, Myocardial Infarction (CA) Last Myocardial Infarction Date:: 10/04/2019 History of Any Multi-Drug Resistant Organisms: None Reported Past Surgical History: Heart Catheterization With Stent Date of Last Stent Placement:: 10/04/2019 Past Psychological History: Anxiety Smoking Status: Never smoker Past Alcohol Use History: None Reported Past Drug Use History: None Reported General Exam Limitations: no limitations Course Vital Signs 10/27/20 11:01 Temperature 97.7 F Pulse Rate 78 Respiratory 16 Rate Blood Pressure 170/90 O2 Sat by Pulse 96 Oximetry Medical Decision Making - Lab Data Result diagrams: 10/27/20 12:00 10/27/20 12:00 Lab Results 10/27/20 10/27/20 10/27/20 Range/Units 12:00 12:00 12:00 WBC 10.5 (3.8-10.6) k/uL RBC 4.54 (4.30-5.90) m/uL Hgb 14.8 (13.0-17.5) gm/dL Hct 44.3 (39.0-53.0) % MCV 97.6 (80.0-100.0) fL MCH 32.6 (25.0-35.0) pg MCHC 33.4 (31.0-37.0) g/dL RDW 13.4 (11.5-15.5) % Plt Count 245 (150-450) k/uL MPV 8.3 Neutrophils % 78 % Lymphocytes % 15 % Monocytes % 5 % Eosinophils % 1 % Basophils % 0 % Neutrophils # 8.2 H (1.3-7.7) k/uL Lymphocytes # 1.6 (1.0-4.8) k/uL Monocytes # 0.5 (0-1.0) k/uL Eosinophils # 0.1 (0-0.7) k/uL Basophils # 0.0 (0-0.2) k/uL PT 10.8 (9.0-12.0) sec INR 1.0 (<1.2) APTT 25.3 (22.0-30.0) sec Sodium 140 (137-145) mmol/L Potassium 4.6 (3.5-5.1) mmol/L Chloride 106 (98-107) mmol/L Carbon Dioxide 27 (22-30) mmol/L Anion Gap 7 mmol/L BUN 27 H (9-20) mg/dL Creatinine 1.68 H (0.66-1.25) mg/dL Est GFR (CKD-EPI)AfAm 44 (>60 ml/min/1.73 sqM) Est GFR (CKD-EPI)NonAf 38 (>60 ml/min/1.73 sqM) Glucose 104 H (74-99) mg/dL Calcium 9.9 (8.4-10.2) mg/dL Magnesium 2.0 (1.6-2.3) mg/dL Total Bilirubin 1.2 (0.2-1.3) mg/dL AST 25 (17-59) U/L ALT 16 (4-49) U/L Alkaline Phosphatase 82 (38-126) U/L Troponin I (0.000-0.034) ng/mL Total Protein 7.2 (6.3-8.2) g/dL Albumin 4.3 (3.5-5.0) g/dL Lipase 120 (23-300) U/L 10/27/20 Range/Units 12:00 WBC (3.8-10.6) k/uL RBC (4.30-5.90) m/uL Hgb (13.0-17.5) gm/dL Hct (39.0-53.0) % MCV (80.0-100.0) fL MCH (25.0-35.0) pg MCHC (31.0-37.0) g/dL RDW (11.5-15.5) % Plt Count (150-450) k/uL MPV Neutrophils % % Lymphocytes % % Monocytes % % Eosinophils % % Basophils % % Neutrophils # (1.3-7.7) k/uL Lymphocytes # (1.0-4.8) k/uL Monocytes # (0-1.0) k/uL Eosinophils # (0-0.7) k/uL Basophils # (0-0.2) k/uL PT (9.0-12.0) sec INR (<1.2) APTT (22.0-30.0) sec Sodium (137-145) mmol/L Potassium (3.5-5.1) mmol/L Chloride (98-107) mmol/L Carbon Dioxide (22-30) mmol/L Anion Gap mmol/L BUN (9-20) mg/dL Creatinine (0.66-1.25) mg/dL Est GFR (CKD-EPI)AfAm (>60 ml/min/1.73 sqM) Est GFR (CKD-EPI)NonAf (>60 ml/min/1.73 sqM) Glucose (74-99) mg/dL Calcium (8.4-10.2) mg/dL Magnesium (1.6-2.3) mg/dL Total Bilirubin (0.2-1.3) mg/dL AST (17-59) U/L ALT (4-49) U/L Alkaline Phosphatase (38-126) U/L Troponin I <0.012 (0.000-0.034) ng/mL Total Protein (6.3-8.2) g/dL Albumin (3.5-5.0) g/dL Lipase (23-300) U/L Disposition Clinical Impression: Chest pain Disposition: HOME SELF-CARE Condition: Fair Instructions (If sedation given, give patient instructions): Chest Pain (ED) Is patient prescribed a controlled substance at d/c from ED?: No Referrals: Abdiel Garza MD [Primary Care Provider] - 1-2 days
[2020-10-27 12:07] LABS: Basophils % (A) 0 %; Eosinophils # (A) 0.1 k/uL (0-0.7); Eosinophils % (A) 1 %; HCT 44.3 % (39.0-53.0); HGB 14.8 gm/dL (13.0-17.5); Lymphocytes # (A) 1.6 k/uL (1.0-4.8); Lymphocytes % (A) 15 %; MCH 32.6 pg (25.0-35.0); MCHC 33.4 g/dL (31.0-37.0); MCV 97.6 fL (80.0-100.0); Mean Platelet Volume 8.3; Monocytes # (A) 0.5 k/uL (0-1.0); Monocytes % (A) 5 %; Neutrophils # (A) 8.2 k/uL (1.3-7.7); Neutrophils % (A) 78 %; Platelet Count 245 k/uL (150-450); RBC 4.54 m/uL (4.30-5.90); RDW 13.4 % (11.5-15.5); WBC 10.5 k/uL (3.8-10.6)
--- NOTE | 2020-10-27 12:15 | XR ---
EXAMINATION TYPE: XR chest 2V DATE OF EXAM: 10/27/2020 COMPARISON: 10/07/2019 HISTORY: Shortness of breath TECHNIQUE: Frontal and lateral views of the chest are obtained. FINDINGS: Scattered senescent parenchymal changes noted. Hyperinflation compatible with COPD. No evidence for infiltrate. No evidence for atelectasis. Heart size is stable. Mediastinal structures are stable and grossly unremarkable. No evidence for hilar prominence. Degenerative changes dorsal spine. IMPRESSION: 1. No evidence for acute pulmonary disease.
[2020-10-27 12:19] LABS: Albumin 4.3 g/dL (3.5-5.0); Calcium 9.9 mg/dL (8.4-10.2); Potassium 4.6 mmol/L (3.5-5.1); Total Bilirubin 1.2 mg/dL (0.2-1.3); Total Protein 7.2 g/dL (6.3-8.2)
[2020-10-27 12:26] LABS: Partial Thromboplastin Time 25.3 sec (22.0-30.0); Prothrombin Time 10.8 sec (9.0-12.0)
[2020-10-27 13:34] VITALS: BP 162/97; PULSE 85
== END 2020-10-27 13:34 | disposition home or self-care (01) ==
LOC: EC 10:58
DX: R07.89 Other chest pain (principal); I10 Essential (primary) hypertension; I25.10 Atherosclerotic heart disease of native coronary artery without angina pectoris; I25.2 Old myocardial infarction; Z79.899 Other long term (current) drug therapy; Z95.5 Presence of coronary angioplasty implant and graft
CPT/HCPCS: 36415; 71046; 80053; 83690; 83735; 84484; 85025; 85610; 85730; 93005; 99285

== ENCOUNTER 2023-01-23 12:11 | Emergency (ER) | payer MEDICARE ==
[2023-01-23 12:58] VITALS: TEMP 97.7
--- NOTE | 2023-01-23 13:28 | ED ---
SOB HPI - General Chief Complaint: Shortness of Breath Stated Complaint: SOB Time Seen by Provider: 01/23/23 13:01 Source: patient, RN notes reviewed Mode of arrival: ambulatory Limitations: no limitations - History of Present Illness Initial Comments: This is a 82-year-old male who presents to the emergency department for shortness of breath. States that over the last 6 months, he has had problems with shortness of breath that occurs while sleeping or lying down. This does not wake him up, states that he has difficulty sleeping regardless. When he wakes up, he notices that he seems to be breathing more deeply and heavily, and also has difficulty catching his breath. He does occasionally sleep in his recliner because of this. He also notices that when he wakes up, his blood pressure seems more elevated, in the 140s to 150s systolically. Today, he noticed that his blood pressure was 175 systolically, which concerned him. Denies any history of sleep apnea and he has never had any sleep studies. Denies any swelling in his extremities or weight gain. He has not yet discussed this with his primary care provider, and states that it is difficult for him to get an appointment. He did go to urgent care before coming here, and was subse quently instructed to come to the emergency department for further evaluation. MD Complaint: shortness of breath - Related Data Home Medications Medication Instructions Recorded Confirmed Cyanocobalamin [Vitamin B-12] 500 mcg PO DAILY 10/04/19 10/27/20 LORazepam [Ativan] 1 mg PO BID PRN 10/04/19 10/27/20 Nitroglycerin 0.4MG/Hr Patch 1 patch TRANSDERM DAILY PRN 10/04/19 10/27/20 [Nitro-Dur 0.4MG/Hr Patch] Potassium Gluconate [Potassium 99 mg PO DAILY 10/04/19 10/27/20 Gluconate ER] Amiodarone [Cordarone] 100 mg PO DAILY 10/27/20 10/27/20 Apixaban [Eliquis] 5 mg PO DAILY 10/27/20 10/27/20 Riboflavin (Vitamin B2) [Vitamin 50 mg PO DAILY 10/27/20 10/27/20 B-2] carvediloL [Coreg] 6.25 mg PO BID 10/27/20 10/27/20 Previous Rx's Medication Instructions Recorded Aspirin 81 mg PO DAILY #30 chewable 10/07/19 Atorvastatin [Lipitor] 80 mg PO DAILY #30 tab 10/07/19 Spironolactone [Aldactone] 12.5 mg PO DAILY #30 tab 10/07/19 Furosemide [Lasix] 40 mg PO DAILY 3 Days #3 tablet 01/23/23 Allergies Allergy/AdvReac Type Severity Reaction Status Date / Time No Known Allergies Allergy Verified 01/23/23 12:49 Review of Systems ROS Statement: Those systems with pertinent positive or pertinent negative responses have been documented in the HPI. ROS Other: All systems not noted in ROS Statement are negative. Past Medical History Past Medical History: Coronary Artery Disease (CAD), Hyperlipidemia, Hypertension, Myocardial Infarction (ND) Last Myocardial Infarction Date:: 10/04/2019 History of Any Multi-Drug Resistant Organisms: None Reported Past Surgical History: Heart Catheterization With Stent Date of Last Stent Placement:: 10/04/2019 Past Psychological History: Anxiety Smoking Status: Never smoker Past Alcohol Use History: None Reported Past Drug Use History: None Reported General Exam Limitations: no limitations General appearance: alert, in no apparent distress Head exam: Present: atraumatic, normocephalic, normal inspection Respiratory exam: Present: normal lung sounds bilaterally. Absent: respiratory distress, wheezes, rales, rhonchi, stridor Cardiovascular Exam: Present: regular rate, normal rhythm, normal heart sounds. Absent: systolic murmur, diastolic murmur, rubs, gallop, clicks Extremities exam: Absent: pedal edema Neurological exam: Present: alert, oriented X3, CN II-XII intact Psychiatric exam: Present: normal affect, normal mood Skin exam: Present: warm, dry, intact, normal color. Absent: rash Course Vital Signs 01/23/23 01/23/23 12:44 15:50 Temperature 97.7 F Pulse Rate 99 62 Respiratory 20 16 Rate Blood Pressure 159/82 175/99 O2 Sat by Pulse 98 97 Oximetry Medical Decision Making - Medical Decision Making This is a 82-year-old male who presents to the emergency department for shortness of breath. Was pt. sent in by a medical professional or institution? @ -Urgent Care Did you speak to anyone other than the patient for history? @ -No Did you review nursing and triage notes? @ -Yes, and I agree, it is accurate with regards to the patient's symptoms. Were old charts reviewed? @ -No Differential Diagnosis? @ -Differential Dyspnea: Coronary syndrome, arrhythmia, tamponade, asthma, COPD, pulmonary embolism, pneumonia, pneumothorax, pulmonary effusion, anaphylaxis, diabetic ketoacidosis, flailed chest, pulmonary contusion, diaphragmatic rupture, anemia, neuromuscular, this is not meant to be an all-inclusive list. EKG interpreted by me (3pts min.)? @ -EKG interpreted by me demonstrating the following: Sinus rhythm. Ventricular rate 62 beats per minute, OH interval 193 ms, QRS duration 104 ms, QTC 433 ms. X-rays interpreted by me (1pt min.)? @ -Chest x-ray obtained, my interpretation identifies no localized consolidations or infiltrates. CT interpreted by me (1pt min.)? @ -Not obtained U/S interpreted by me (1pt. min.)? @ -Not obtained What testing was considered but not performed? (CT, X-rays, U/S, labs)? Why? @ -None What meds were considered but not given? Why? @ -None Did you discuss the management of the patient with other professionals? @ -No Did you reconcile home meds? @ -No Was smoking cessation discussed for >3mins.? @ -No Was critical care preformed (if so, how long)? @ -No Were there social determinants of health that impacted care today? How? (Homelessness, low income, unemployed, alcoholism, drug addiction, transportation, low edu. Level, literacy, decrease access to med. care, senior living, rehab)? @ -No Was there de-escalation of care discussed even if they declined? (Discuss DNR or withdrawal of care, Hospice)? @ -No What co-morbidities impacted this encounter? (DM, HTN, Smoking, COPD, CAD, Cancer, CVA, Hep., AIDS, mental health diagnosis, sleep apnea, morbid obesity)? @ -CAD Was patient admitted / discharged? @ -Discharged. Lab work obtained revealing an elevated BNP of 4310. There are no prior BNP values for comparison. Renal function is not optimal, however it is improved when compared with most recent values. Lab work was otherwise nonactionable. Chest x-ray reveals no acute process. Discussed with the patient the possibility of CHF contributing to his symptoms. It is also possible that this related to something else entirely such as sleep apnea. He was given a dose of Lasix in the emergency department and a prescription for a 3 day course of Lasix was provided. I did advise he take this in the morning as it will increase his urination. He is a patient of Dr. Choe, cardiology, and last saw him 6 months ago. He was advised that he can follow-up as needed, as everything was normal during his last visit. I did advise he contact them for a follow-up appointment. We also made him an appointment with his PCP for 01/31. Additionally, he has an appointment with the nurse at his PCP's office tomorrow for blood work and a blood pressure recheck. This was discussed with the patient and his grandson, who express understanding and were discharged home in stable condition. Undiagnosed new problem with uncertain prognosis? @ -None Drug Therapy requiring intensive monitoring for toxicity (Heparin, Nitro, Insulin, Cardizem)? @ -None Were any procedures done? @ -None Diagnosis/symptom? @ -Orthopnea Acute, or Chronic, or Acute on Chronic? @ -Chronic Uncomplicated (without systemic symptoms) or Complicated (systemic symptoms)? @ -Uncomplicated Side effects of treatment? @ -None Exacerbation, Progression, or Severe Exacerbation] @ -Stable Poses a threat to life or bodily function? @ -Yes Diagnosis/symptom? @ -New onset CHF Acute, or Chronic, or Acute on Chronic? @ -Acute Uncomplicated (without systemic symptoms) or Complicated (systemic symptoms)? @ -Uncomplicated Side effects of treatment? @ -None Exacerbation, Progression, or Severe Exacerbation] @ -Not applicable Poses a threat to life or bodily function? @ -Yes Return precautions reviewed in depth, the patient is instructed to return to the emergency department with any new, worsening, or concerning symptoms. Patient verbalized understanding. This case was discussed in detail with the attending ED physician, Dr. Llanos. Presentation, findings, and treatment plan discussed in detail as well. - Lab Data Result diagrams: 01/23/23 14:01/23/23 14: Lab Results 01/23/23 01/23/23 01/23/23 Range/Units 14: 14: 14: WBC 9.1 (3.8-10.6) k/uL RBC 4.23 L (4.30-5.90) m/uL Hgb 14.1 (13.0-17.5) gm/dL Hct 42.4 (39.0-53.0) % MCV 100.3 H (80.0-100.0) fL MCH 33.3 (25.0-35.0) pg MCHC 33.2 (31.0-37.0) g/dL RDW 13.3 (11.5-15.5) % Plt Count 174 (150-450) k/uL MPV 9.5 Neutrophils % 77 % Lymphocytes % 16 % Monocytes % 5 % Eosinophils % 1 % Basophils % 0 % Neutrophils # 6.9 (1.3-7.7) k/uL Lymphocytes # 1.4 (1.0-4.8) k/uL Monocytes # 0.4 (0-1.0) k/uL Eosinophils # 0.1 (0-0.7) k/uL Basophils # 0.0 (0-0.2) k/uL PT 12.0 (10.0-12.5) sec INR 1.1 (<1.2) APTT 29.1 (22.0-30.0) sec Sodium 139 (137-145) mmol/L Potassium 4.1 (3.5-5.1) mmol/L Chloride 107 (98-107) mmol/L Carbon Dioxide 24 (22-30) mmol/L Anion Gap 8 mmol/L BUN 21 H (9-20) mg/dL Creatinine 1.53 H (0.66-1.25) mg/dL Est GFR (CKD-EPI)AfAm 48 (>60 ml/min/1.73 sqM) Est GFR (CKD-EPI)NonAf 41 (>60 ml/min/1.73 sqM) Glucose 101 H (74-99) mg/dL Plasma Lactic Acid Basil (0.7-2.0) mmol/L Calcium 8.6 (8.4-10.2) mg/dL Total Bilirubin 1.2 (0.2-1.3) mg/dL AST 26 (17-59) U/L ALT 16 (4-49) U/L Alkaline Phosphatase 68 (38-126) U/L Troponin I (0.000-0.034) ng/mL NT-Pro-B Natriuret Pep 4310 pg/mL Total Protein 6.2 L (6.3-8.2) g/dL Albumin 3.6 (3.5-5.0) g/dL 01/23/23 01/23/23 Range/Units 14:01 14:01 WBC (3.8-10.6) k/uL RBC (4.30-5.90) m/uL Hgb (13.0-17.5) gm/dL Hct (39.0-53.0) % MCV (80.0-100.0) fL MCH (25.0-35.0) pg MCHC (31.0-37.0) g/dL RDW (11.5-15.5) % Plt Count (150-450) k/uL MPV Neutrophils % % Lymphocytes % % Monocytes % % Eosinophils % % Basophils % % Neutrophils # (1.3-7.7) k/uL Lymphocytes # (1.0-4.8) k/uL Monocytes # (0-1.0) k/uL Eosinophils # (0-0.7) k/uL Basophils # (0-0.2) k/uL PT (10.0-12.5) sec INR (<1.2) APTT (22.0-30.0) sec Sodium (137-145) mmol/L Potassium (3.5-5.1) mmol/L Chloride (98-107) mmol/L Carbon Dioxide (22-30) mmol/L Anion Gap mmol/L BUN (9-20) mg/dL Creatinine (0.66-1.25) mg/dL Est GFR (CKD-EPI)AfAm (>60 ml/min/1.73 sqM) Est GFR (CKD-EPI)NonAf (>60 ml/min/1.73 sqM) Glucose (74-99) mg/dL Plasma Lactic Acid Basil 0.7 (0.7-2.0) mmol/L Calcium (8.4-10.2) mg/dL Total Bilirubin (0.2-1.3) mg/dL AST (17-59) U/L ALT (4-49) U/L Alkaline Phosphatase (38-126) U/L Troponin I <0.012 (0.000-0.034) ng/mL NT-Pro-B Natriuret Pep pg/mL Total Protein (6.3-8.2) g/dL Albumin (3.5-5.0) g/dL - Radiology Data Radiology results: report reviewed, image reviewed Disposition Clinical Impression: Orthopnea, New onset of congestive heart failure Disposition: HOME SELF-CARE Instructions (If sedation given, give patient instructions): Heart Failure (ER) Additional Instructions: Return to the emergency department with any new, worsening, or concerning symptoms. Take the Lasix daily for the next 3 days, with your first dose beginning tomorrow, as you received a dose in the emergency department today. Take this in the morning, as it will increase your urination. We were able to get you an appointment with Dr. Cedillo, on 01/31 for a follow-up appointment at 11:30am. This will be with your doctor himself. Make sure you still attend your appointment tomorrow for blood work with the nurse. Prescriptions: Furosemide [Lasix] 40 mg PO DAILY 3 Days #3 tablet Is patient prescribed a controlled substance at d/c from ED?: No Referrals: Bill Cedillo MD [Primary Care Provider] - 01/31/23 11:30 am (BP check tomorrow at 1045 with nursing at office.)
--- NOTE | 2023-01-23 13:54 | XR ---
EXAMINATION TYPE: XR chest 2V DATE OF EXAM: 01/23/2023 COMPARISON: 10/27/2020 HISTORY: Shortness of breath TECHNIQUE: Frontal and lateral views of the chest are obtained. FINDINGS: Scattered senescent parenchymal changes noted. Hyperinflation compatible with COPD. No evidence for infiltrate. No evidence for atelectasis. Heart size is stable. Small left-sided effusion noted. Focal eventration right hemidiaphragm. Mediastinal structures are stable and grossly unremarkable. No evidence for hilar prominence. Degenerative changes dorsal spine. IMPRESSION: 1. No evidence for acute pulmonary disease.
[2023-01-23 14:16] LABS: Basophils % (A) 0 %; Eosinophils # (A) 0.1 k/uL (0-0.7); Eosinophils % (A) 1 %; HCT 42.4 % (39.0-53.0); HGB 14.1 gm/dL (13.0-17.5); Lymphocytes # (A) 1.4 k/uL (1.0-4.8); Lymphocytes % (A) 16 %; MCH 33.3 pg (25.0-35.0); MCHC 33.2 g/dL (31.0-37.0); MCV 100.3 fL (80.0-100.0); Mean Platelet Volume 9.5; Monocytes # (A) 0.4 k/uL (0-1.0); Monocytes % (A) 5 %; Neutrophils # (A) 6.9 k/uL (1.3-7.7); Neutrophils % (A) 77 %; Platelet Count 174 k/uL (150-450); RBC 4.23 m/uL (4.30-5.90); RDW 13.3 % (11.5-15.5); WBC 9.1 k/uL (3.8-10.6)
[2023-01-23 14:29] LABS: ALT 16 U/L (4-49); AST 26 U/L (17-59); African American GFR (CKD) 48 (>60 ml/min/1.73 sqM); Albumin 3.6 g/dL (3.5-5.0); Alkaline Phosphatase 68 U/L (38-126); Anion Gap 8 mmol/L; Blood Urea Nitrogen 21 mg/dL (9-20); Calcium 8.6 mg/dL (8.4-10.2); Carbon Dioxide 24 mmol/L (22-30); Chloride 107 mmol/L (98-107); Glucose 101 mg/dL (74-99); Non-African American GFR(CKD) 41 (>60 ml/min/1.73 sqM); Potassium 4.1 mmol/L (3.5-5.1); Sodium 139 mmol/L (137-145); Total Bilirubin 1.2 mg/dL (0.2-1.3); Total Protein 6.2 g/dL (6.3-8.2)
[2023-01-23 14:35] LABS: INR 1.1 (<1.2); Partial Thromboplastin Time 29.1 sec (22.0-30.0)
[2023-01-23 14:37] LABS: NT-Pro-B-Type Natriuretic Pept 4310 pg/mL
[2023-01-23] MEDS ORDERED: FUROSEMIDE 10 MG/ML 2 ML VIAL IV STA (14:55)
[2023-01-23 16:00] VITALS: BP 175/99; PULSE 62; RESP 16
== END 2023-01-23 15:50 | disposition home or self-care (01) ==
LOC: EC 12:11
DX: R06.01 Orthopnea (principal); I50.21 Acute systolic (congestive) heart failure; I25.10 Atherosclerotic heart disease of native coronary artery without angina pectoris; I11.0 Hypertensive heart disease with heart failure; I50.9 Heart failure, unspecified; I25.2 Old myocardial infarction; F41.9 Anxiety disorder, unspecified; Z79.899 Other long term (current) drug therapy; Z79.01 Long term (current) use of anticoagulants
CPT/HCPCS: 36415; 93005; 83880; 80053; 83605; 84484; 85025; 85610; 85730; 71046; 99285; 96374; J1940